=== PATIENT | female | born 1980 | race Caucasian/White ===

== ENCOUNTER 2018-10-09 22:03 | Inpatient (IN) | payer BC, OTHER ==
[~2018-10-09] VITALS: Ht 154.9 cm; Wt 101.6 kg
[2018-10-09] MEDS ORDERED: ONDANSETRON PF 4 MG/2 ML VIAL. IV ONE (23:00)
[2018-10-09] MEDS ORDERED: IV NORMAL SALINE 1000ML BAG 1,000 ML IV ONE (23:00)
[2018-10-09] MEDS ORDERED: fentaNYL PF VIAL 100 MCG/2 ML VIAL IV ONE (23:15)
[2018-10-09 23:17] LABS: BASO % 0 % (0-3); EOS % 0 % (0-3); HEMATOCRIT 48.5 % (36.0-47.0); HEMOGLOBIN 16.3 g/dL (12.0-15.5); LYMPH # 1.4 x10^3/uL (1.0-4.8); LYMPH % 7 % (24-48); MEAN CORPUSCULAR HEMOGLOBIN 31 pg (25-35); MEAN CORPUSCULAR HGB CONC 34 g/dL (31-37); MEAN CORPUSCULAR VOLUME 93 fL (79-100); MONO # 1.7 x10^3/uL (0.0-1.1); MONO % 8 % (0-9); NEUT # 17.2 x10^3uL (1.8-7.7); NEUT % 85 % (31-73); PLATELET COUNT 434 x10^3/uL (140-400); RED BLOOD COUNT 5.23 x10^6/uL (3.50-5.40); RED CELL DISTRIBUTION WIDTH 14.3 % (11.5-14.5); WHITE BLOOD COUNT 20.3 x10^3/uL (4.0-11.0)
[2018-10-09 23:38] LABS: % BANDS 11 % (0-9); % LYMPHS 4 % (24-48); % MONOS 9 % (0-10); % SEGS 76 % (35-66); PLT ESTIMATE INCREASED (ADEQUATE)
[2018-10-10] VITALS (10 sets, daily range): BP systolic 94–127; BP diastolic 57–76
[2018-10-10 00:54] LABS: CALCIUM 9.4 mg/dL (8.5-10.1); CREATININE 0.9 mg/dL (0.6-1.0); GFR 70.8; POTASSIUM 3.8 mmol/L (3.5-5.1)
[2018-10-10 01:00] LABS: ALBUMIN 4.2 g/dL (3.4-5.0); ALBUMIN/GLOBULIN RATIO 1.1 (1.0-1.7); TOTAL BILIRUBIN 0.7 mg/dL (0.2-1.0); TOTAL PROTEIN 8.1 g/dL (6.4-8.2)
[2018-10-10] MEDS ORDERED: IOHEXOL 300 MG/ML 100ML VIAL. IV ONE (01:30)
[2018-10-10] MEDS ORDERED: CONTRAST GIVEN. MC PRN (01:45)
--- NOTE | 2018-10-10 02:09 | PHYS DOC ---
Past Medical History Past Medical History: Hypothyroid Past Surgical History: No Surgical History Alcohol Use: Rarely Drug Use: None Adult General Chief Complaint Chief Complaint: ABDOMINAL PAIN HPI HPI 38-year-old female presents with a 24-hour history of abdominal pain. She states she has had a lump around her umbilicus however it seems more pronounced and more painful today. She has had some nausea and vomiting. She denies any fever chills or sweats. She denies any melena or hematemesis. She states the pain is severe.[] Review of Systems Review of Systems Constitutional: Denies fever or chills [] Eyes: Denies change in visual acuity, redness, or eye pain [] HENT: Denies nasal congestion or sore throat [] Respiratory: Denies cough or shortness of breath [] Cardiovascular: No additional information not addressed in HPI [] GI: Denies abdominal pain, nausea, vomiting, bloody stools or diarrhea [] : Denies dysuria or hematuria [] Musculoskeletal: Denies back pain or joint pain [] Integument: Denies rash or skin lesions [] Neurologic: Denies headache, focal weakness or sensory changes [] Endocrine: Denies polyuria or polydipsia [] All other systems were reviewed and found to be within normal limits, except as documented in this note. Current Medications Current Medications Current Medications Medications (Trade) Dose Ordered Sig/Kemal Start Time Stop Time Status Last Admin Dose Admin Fentanyl Citrate (Fentanyl 2ml Vial) 50 mcg 1X ONCE 10/09/18 23:15 10/09/18 23:16 DC 10/09/18 23:28 50 MCG Info (CONTRAST GIVEN -- Rx MONITORING) 1 each PRN DAILY PRN 10/10/18 01:45 10/12/18 01:44 Iohexol (Omnipaque 300 Mg/ml) 75 ml 1X ONCE 10/10/18 01:30 10/10/18 01:49 DC 10/10/18 01:31 75 ML Ondansetron HCl (Zofran) 4 mg 1X ONCE 10/10/18 02:15 10/10/18 02:16 DC 10/10/18 02:15 4 MG Sodium Chloride 1,000 ml @ 1,000 mls/hr 1X ONCE 10/09/18 23:00 10/09/18 23:59 DC 10/09/18 23:07 1,000 MLS/HR Allergies Allergies Allergies Coded Allergies Type Severity Reaction Last Updated Verified Penicillins Allergy Intermediate 02/06/16 No Physical Exam Physical Exam Constitutional: Well developed, well nourished, moderate distress, non-toxic appearance. [] HENT: Normocephalic, atraumatic, bilateral external ears normal, oropharynx moist, no oral exudates, nose normal. [] Eyes: PERRLA, EOMI, conjunctiva normal, no discharge. [] Neck: Normal range of motion, no tenderness, supple, no stridor. [] Cardiovascular:Heart rate regular rhythm, no murmur [] Lungs & Thorax: Bilateral breath sounds clear to auscultation [] Abdomen: Soft and generally tender to palp there is a very painful periumbilical ventral hernia[] Skin: Warm, dry, no erythema, no rash. [] Back: No tenderness, no CVA tenderness. [] Extremities: No tenderness, no cyanosis, no clubbing, ROM intact, no edema. [] Neurologic: Alert and oriented X 3, normal motor function, normal sensory function, no focal deficits noted. [] Psychologic: Anxious[] Current Patient Data Vital Signs Vital Signs Date Time Temp Pulse Resp B/P (MAP) Pulse Ox O2 Delivery O2 Flow Rate FiO2 10/10/18 02:19 144/101 (115) 10/09/18 23:28 18 98 Room Air 10/09/18 23:05 99.2 118 99.2 Lab Values Laboratory Tests Test 10/09/18 23:05 10/10/18 00:01 White Blood Count 20.3 x10^3/uL (4.0-11.0) H Red Blood Count 5.23 x10^6/uL (3.50-5.40) Hemoglobin 16.3 g/dL (12.0-15.5) H Hematocrit 48.5 % (36.0-47.0) H Mean Corpuscular Volume 93 fL (79-100) Mean Corpuscular Hemoglobin 31 pg (25-35) Mean Corpuscular Hemoglobin Concent 34 g/dL (31-37) Red Cell Distribution Width 14.3 % (11.5-14.5) Platelet Count 434 x10^3/uL (140-400) H Neutrophils (%) (Auto) 85 % (31-73) H Lymphocytes (%) (Auto) 7 % (24-48) L Monocytes (%) (Auto) 8 % (0-9) Eosinophils (%) (Auto) 0 % (0-3) Basophils (%) (Auto) 0 % (0-3) Neutrophils # (Auto) 17.2 x10^3uL (1.8-7.7) H Lymphocytes # (Auto) 1.4 x10^3/uL (1.0-4.8) Monocytes # (Auto) 1.7 x10^3/uL (0.0-1.1) H Eosinophils # (Auto) 0.0 x10^3/uL (0.0-0.7) Basophils # (Auto) 0.0 x10^3/uL (0.0-0.2) Segmented Neutrophils % 76 % (35-66) H Band Neutrophils % 11 % (0-9) H Lymphocytes % 4 % (24-48) L Monocytes % 9 % (0-10) Platelet Estimate Increased (ADEQUATE) Lipase 98 U/L (73-393) Sodium Level 140 mmol/L (136-145) Potassium Level 3.8 mmol/L (3.5-5.1) Chloride Level 100 mmol/L (98-107) Carbon Dioxide Level 28 mmol/L (21-32) Anion Gap 12 (6-14) Blood Urea Nitrogen 19 mg/dL (7-20) Creatinine 0.9 mg/dL (0.6-1.0) Estimated GFR (Cockcroft-Gault) 70.8 BUN/Creatinine Ratio 21 (6-20) H Glucose Level 113 mg/dL (70-99) H Calcium Level 9.4 mg/dL (8.5-10.1) Total Bilirubin 0.7 mg/dL (0.2-1.0) Aspartate Amino Transferase (AST) 18 U/L (15-37) Alanine Aminotransferase (ALT) 23 U/L (14-59) Alkaline Phosphatase 76 U/L (46-116) Total Protein 8.1 g/dL (6.4-8.2) Albumin 4.2 g/dL (3.4-5.0) Albumin/Globulin Ratio 1.1 (1.0-1.7) Laboratory Tests 10/09/18 23:05 Laboratory Tests 10/10/18 00:01 EKG EKG [] Radiology/Procedures Radiology/Procedures [] Impressions: STATUS: REG ERORD. PHYSICIAN: ALMA ANGELA DO REASON: abd pain - ventral hernia PROCEDURE: CT ABD PELV W/ IV CONTRST ONLY EXAM: CT Abdomen and Pelvis with IV contrast CLINICAL HISTORY: Abdominal pain, ventral abdominal hernia. COMPARISON: none TECHNIQUE: Helical CT of the abdomen and pelvis was performed following the administration of intravenous contrast. Axial, coronal and sagittal reformatted images were generated. PQRS compliance statement - One or more of the following individualized dose reduction techniques were utilized for this study: 1. Automated exposure control 2. Adjustment of the mA and/or kV according to patient size 3. Use of iterative reconstruction technique FINDINGS: Lower chest: Lung bases are clear. Small hiatal hernia. Abdomen and Pelvis: No focal liver lesion. Calcified gallstones are seen within the gallbladder. Spleen is unremarkable. Adrenal glands are normal. Pancreas is unremarkable. Symmetric nephrograms. Hypodense left interpolar renal lesion too small to accurately characterize. No hydronephrosis or hydroureter. There is dilation of the small bowel to the level of a ventral abdominal hernia with distal decompression consistent with small bowel obstruction. Small volume free pelvic fluid. No evidence for free intraperitoneal gas. Fluid is seen tracking up along the cecum. Appendix is normal. Small volume abdominal and pelvic ascites. No loculated fluid collection is seen within the abdomen or pelvis. Bladder is unremarkable. No abdominal or pelvic lymphadenopathy. Bones: Osseous structures are unremarkable. IMPRESSION: 1. Small bowel obstruction to the level of the ventral abdominal hernia beyond which the small bowel is decompressed. 2. Mild abdominal and pelvic ascites. No pneumoperitoneum. 3. Cholelithiasis without CT evidence for acute cholecystitis. Course & Med Decision Making Course & Med Decision Making Pertinent Labs and Imaging studies reviewed. (See chart for details) [ED course: Evaluation reveals a 38-year-old female with what appears to be an incarcerated ventral hernia causing a small bowel obstruction. Patient was given a total of 2 L of IV fluid fentanyl and Zofran which did help improve the symptoms. I was unable to reduce the hernia. I will speak with our general surgeon as soon as I saw the results of the CT scan and got the patient admitted overnight.] Dragon Disclaimer Dragon Disclaimer This electronic medical record was generated, in whole or in part, using a voice recognition dictation system. Departure Departure Impression: Primary Impression: Small bowel obstruction Additional Impression: Incarcerated ventral hernia Disposition: 09 ADMITTED INPATIENT Admitting Physician: Other (Dr. Baltazar) Condition: GUARDED Referrals: CHENCHO ESCAMILLA DO (PCP) Problem Qualifiers ALMA ANGELA DO Oct 10, 2018 02:08
[2018-10-10] MEDS ORDERED: ONDANSETRON PF 4 MG/2 ML VIAL. IV ONE (02:15)
--- NOTE | 2018-10-10 02:19 | RAD ---
EXAM: CT Abdomen and Pelvis with IV contrast CLINICAL HISTORY: Abdominal pain, ventral abdominal hernia. COMPARISON: none TECHNIQUE: Helical CT of the abdomen and pelvis was performed following the administration of intravenous contrast. Axial, coronal and sagittal reformatted images were generated. PQRS compliance statement - One or more of the following individualized dose reduction techniques were utilized for this study: 1. Automated exposure control 2. Adjustment of the mA and/or kV according to patient size 3. Use of iterative reconstruction technique FINDINGS: Lower chest: Lung bases are clear. Small hiatal hernia. Abdomen and Pelvis: No focal liver lesion. Calcified gallstones are seen within the gallbladder. Spleen is unremarkable. Adrenal glands are normal. Pancreas is unremarkable. Symmetric nephrograms. Hypodense left interpolar renal lesion too small to accurately characterize. No hydronephrosis or hydroureter. There is dilation of the small bowel to the level of a ventral abdominal hernia with distal decompression consistent with small bowel obstruction. Small volume free pelvic fluid. No evidence for free intraperitoneal gas. Fluid is seen tracking up along the cecum. Appendix is normal. Small volume abdominal and pelvic ascites. No loculated fluid collection is seen within the abdomen or pelvis. Bladder is unremarkable. No abdominal or pelvic lymphadenopathy. Bones: Osseous structures are unremarkable. IMPRESSION: 1. Small bowel obstruction to the level of the ventral abdominal hernia beyond which the small bowel is decompressed. 2. Mild abdominal and pelvic ascites. No pneumoperitoneum. 3. Cholelithiasis without CT evidence for acute cholecystitis. Electronically signed by: Mj Torrez MD (10/10/2018 2:16 AM) [id number]
[2018-10-10] MEDS ORDERED: fentaNYL PF VIAL 100 MCG/2 ML VIAL IV PRN ×2 (02:30→05:15)
[2018-10-10] MEDS ORDERED: ONDANSETRON PF 4 MG/2 ML VIAL. IV PRN ×3 (02:30→06:30)
[2018-10-10] MEDS ORDERED: IV NORMAL SALINE 1000ML BAG 1,000 ML IV SCH (02:30)
[2018-10-10] MEDS ORDERED: BUPIVAC MPF-EPI 0.5%-1:200000 30 ML VIAL. ONE (03:13)
--- NOTE | 2018-10-10 03:38 | PDOC1 ---
History and Physical Date of Admission Date of Admission DATE: 10/10/18 TIME: 03:30 Identification/Chief Complaint Chief Complaint abdominal pain Source Source: Chart review, Patient History of Present Illness History of Present Illness Yen is a 38 yo obese female with increasing pain around a palpable fullness in her periumbilical area. CT shows SBO 2/2 incarcerated ventral hernia Past Medical History Cardiovascular: No pertinent hx Pulmonary: No pertinent hx Renal/: No pertinent hx Past Surgical History Past Surgical History: No pertinent history Family History Family History: No Significant Social History Smoke: <1 pack per day Drugs: None Current Problem List Problem List Problems Medical Problems: (1) Incarcerated ventral hernia Status: Acute (2) Small bowel obstruction Status: Acute Current Medications Current Medications Current Medications Sodium Chloride 1,000 ml @ 1,000 mls/hr 1X ONCE IV Last administered on at 23:07; Start 10/09/18 at 23:00; Stop 10/09/18 at 23:59; Status DC Ondansetron HCl (Zofran) 8 mg 1X ONCE IV Last administered on 10/09/18at 23:28; Start 10/09/18 at 23:00; Stop 10/09/18 at 23:01; Status DC Fentanyl Citrate (Fentanyl 2ml Vial) 50 mcg 1X ONCE IV Last administered on 10/09/18at 23:28; Start 10/09/18 at 23:15; Stop 10/09/18 at 23:16; Status DC Iohexol (Omnipaque 300 Mg/ml) 75 ml 1X ONCE IV Last administered on 10/10/18at 01:31; Start 10/10/18 at 01:30; Stop 10/10/18 at 01:49; Status DC Info (CONTRAST GIVEN -- Rx MONITORING) 1 each PRN DAILY PRN MC SEE COMMENTS; Start 10/10/18 at 01:45; Stop 10/12/18 at 01:44 Ondansetron HCl (Zofran) 4 mg 1X ONCE IV Last administered on 10/10/18at 02:15 ; Start 10/10/18 at 02:15; Stop 10/10/18 at 02:16; Status DC Ondansetron HCl (Zofran) 4 mg PRN Q8HRS PRN IV NAUSEA/VOMITING; Start 10/10/18 at 02:30; Stop 10/11/18 at 02:29 Fentanyl Citrate (Fentanyl 2ml Vial) 50 mcg PRN Q1HR PRN IV PAIN; Start at 02:30; Stop 10/11/18 at 02:29 Sodium Chloride 1,000 ml @ 125 mls/hr Q8H IV ; Start 10/10/18 at 02:30; Stop at 02:29 Benzocaine (Hurricaine One) 1 spray 1X ONCE MM ; Start 10/10/18 at 03:15; Stop 10/10/18 at 03:16; Status UNV Allergies Allergies: Coded Allergies: Penicillins (Unverified Allergy, Intermediate, 02/06/16) ROS Gastrointestinal: Yes Nausea, Yes Vomiting, Yes Abdominal Pain Physical Exam General: Alert, Oriented X3, Other (uncomfortable 2/2 abdominal pain) HEENT: PERRLA Lungs: Normal air movement Heart: RRR Abdomen: Soft, Other (tender palpable mass in the periumbilical area) Rectal Exam: not examined Extremities: No clubbing, No cyanosis Skin: Other (warm, dry) Neuro: Normal speech Psych/Mental Status: Mental status NL Vitals Vitals Vital Signs Date Time Temp Pulse Resp B/P (MAP) Pulse Ox O2 Delivery O2 Flow Rate FiO2 10/10/18 02:19 144/101 (115) 10/09/18 23:28 18 98 Room Air 10/09/18 23:05 99.2 118 99.2 Labs Labs Laboratory Tests Test 10/09/18 23:05 10/10/18 00:01 White Blood Count 20.3 x10^3/uL (4.0-11.0) Red Blood Count 5.23 x10^6/uL (3.50-5.40) Hemoglobin 16.3 g/dL (12.0-15.5) Hematocrit 48.5 % (36.0-47.0) Mean Corpuscular Volume 93 fL (79-100) Mean Corpuscular Hemoglobin 31 pg (25-35) Mean Corpuscular Hemoglobin Concent 34 g/dL (31-37) Red Cell Distribution Width 14.3 % (11.5-14.5) Platelet Count 434 x10^3/uL (140-400) Neutrophils (%) (Auto) 85 % (31-73) Lymphocytes (%) (Auto) 7 % (24-48) Monocytes (%) (Auto) 8 % (0-9) Eosinophils (%) (Auto) 0 % (0-3) Basophils (%) (Auto) 0 % (0-3) Neutrophils # (Auto) 17.2 x10^3uL (1.8-7.7) Lymphocytes # (Auto) 1.4 x10^3/uL (1.0-4.8) Monocytes # (Auto) 1.7 x10^3/uL (0.0-1.1) Eosinophils # (Auto) 0.0 x10^3/uL (0.0-0.7) Basophils # (Auto) 0.0 x10^3/uL (0.0-0.2) Segmented Neutrophils % 76 % (35-66) Band Neutrophils % 11 % (0-9) Lymphocytes % 4 % (24-48) Monocytes % 9 % (0-10) Platelet Estimate Increased (ADEQUATE) Lipase 98 U/L (73-393) Sodium Level 140 mmol/L (136-145) Potassium Level 3.8 mmol/L (3.5-5.1) Chloride Level 100 mmol/L (98-107) Carbon Dioxide Level 28 mmol/L (21-32) Anion Gap 12 (6-14) Blood Urea Nitrogen 19 mg/dL (7-20) Creatinine 0.9 mg/dL (0.6-1.0) Estimated GFR (Cockcroft-Gault) 70.8 BUN/Creatinine Ratio 21 (6-20) Glucose Level 113 mg/dL (70-99) Calcium Level 9.4 mg/dL (8.5-10.1) Total Bilirubin 0.7 mg/dL (0.2-1.0) Aspartate Amino Transf (AST/SGOT) 18 U/L (15-37) Alanine Aminotransferase (ALT/SGPT) 23 U/L (14-59) Alkaline Phosphatase 76 U/L (46-116) Total Protein 8.1 g/dL (6.4-8.2) Albumin 4.2 g/dL (3.4-5.0) Albumin/Globulin Ratio 1.1 (1.0-1.7) Laboratory Tests Test 10/09/18 23:05 10/10/18 00:01 White Blood Count 20.3 x10^3/uL (4.0-11.0) Red Blood Count 5.23 x10^6/uL (3.50-5.40) Hemoglobin 16.3 g/dL (12.0-15.5) Hematocrit 48.5 % (36.0-47.0) Mean Corpuscular Volume 93 fL (79-100) Mean Corpuscular Hemoglobin 31 pg (25-35) Mean Corpuscular Hemoglobin Concent 34 g/dL (31-37) Red Cell Distribution Width 14.3 % (11.5-14.5) Platelet Count 434 x10^3/uL (140-400) Neutrophils (%) (Auto) 85 % (31-73) Lymphocytes (%) (Auto) 7 % (24-48) Monocytes (%) (Auto) 8 % (0-9) Eosinophils (%) (Auto) 0 % (0-3) Basophils (%) (Auto) 0 % (0-3) Neutrophils # (Auto) 17.2 x10^3uL (1.8-7.7) Lymphocytes # (Auto) 1.4 x10^3/uL (1.0-4.8) Monocytes # (Auto) 1.7 x10^3/uL (0.0-1.1) Eosinophils # (Auto) 0.0 x10^3/uL (0.0-0.7) Basophils # (Auto) 0.0 x10^3/uL (0.0-0.2) Segmented Neutrophils % 76 % (35-66) Band Neutrophils % 11 % (0-9) Lymphocytes % 4 % (24-48) Monocytes % 9 % (0-10) Platelet Estimate Increased (ADEQUATE) Lipase 98 U/L (73-393) Sodium Level 140 mmol/L (136-145) Potassium Level 3.8 mmol/L (3.5-5.1) Chloride Level 100 mmol/L (98-107) Carbon Dioxide Level 28 mmol/L (21-32) Anion Gap 12 (6-14) Blood Urea Nitrogen 19 mg/dL (7-20) Creatinine 0.9 mg/dL (0.6-1.0) Estimated GFR (Cockcroft-Gault) 70.8 BUN/Creatinine Ratio 21 (6-20) Glucose Level 113 mg/dL (70-99) Calcium Level 9.4 mg/dL (8.5-10.1) Total Bilirubin 0.7 mg/dL (0.2-1.0) Aspartate Amino Transf (AST/SGOT) 18 U/L (15-37) Alanine Aminotransferase (ALT/SGPT) 23 U/L (14-59) Alkaline Phosphatase 76 U/L (46-116) Total Protein 8.1 g/dL (6.4-8.2) Albumin 4.2 g/dL (3.4-5.0) Albumin/Globulin Ratio 1.1 (1.0-1.7) Images Images CT abd/pelvis reviewed VTE Prophylaxis Ordered VTE Prophylaxis Devices: Yes VTE Pharmacological Prophylaxi: No Assessment/Plan Assessment/Plan small bowel obstruction 2/2 incarcerated ventral hernia obesity to OR for repair incarcerated hernia, release SBO, possible bowel resection explained risks of the procedure to pt and her daughter including but not limited to bleeding, infection, anastomotic leak, recurrence she will proceed MEREDITH WILKINSON MD Oct 10, 2018 03:38
[2018-10-10] MEDS ORDERED: BENZOCAINE ONE 20% MUCOSAL SPRAY. MM (03:45)
[2018-10-10] MEDS ORDERED: fentaNYL PF VIAL 250 MCG/5 ML VIAL ONE (04:03)
[2018-10-10] MEDS ORDERED: ROCURONIUM 50 MG/5 ML VIAL. ONE (04:04)
[2018-10-10] MEDS ORDERED: SUCCINYLCHOLINE 200 MG/10 ML VIAL. ONE (04:04)
[2018-10-10] MEDS ORDERED: LIDOCAINE 2% PF 5 ML VIAL. ONE (04:06)
[2018-10-10] MEDS ORDERED: PROPOFOL 20 ML IV ONE (04:06)
[2018-10-10] MEDS ORDERED: ISOFLURANE 61 TO 120 MINUTES. IH ONE (04:06)
[2018-10-10] MEDS ORDERED: ONDANSETRON PF 4 MG/2 ML VIAL. ONE (04:06)
[2018-10-10] MEDS ORDERED: DEXAMETHASONE SOD PHOS 20 MG/5 ML VIAL. ONE (04:06)
[2018-10-10] MEDS ORDERED: FAMOTIDINE 20 MG/2 ML VIAL ONE (04:13)
[2018-10-10] MEDS ORDERED: IV RINGERS,LACTATED 1000ML 1,000 ML IV SCH ×2 (04:15→05:15)
[2018-10-10] MEDS ORDERED: METOPROLOL TARTRATE 5 MG/5 ML VIAL. IVP ONE (04:28)
[2018-10-10] MEDS ORDERED: LIDOCAINE 1% PF 2 ML VIAL. ID PRN (05:15)
[2018-10-10] MEDS ORDERED: GLYCOPYRROLATE 1 MG/5 ML VIAL. ONE (05:28)
[2018-10-10] MEDS ORDERED: NEOSTIGMINE METHYLSULFATE 5 MG/5 ML SYRINGE. ONE (05:29)
[2018-10-10] MEDS ORDERED: PHENOL ORAL SPRAY 177ML BOTTLE. PO PRN ×2 (06:30→23:00)
[2018-10-10] MEDS ORDERED: BENZOCAINE/MENTHOL LOZENGE. PO PRN (06:30)
[2018-10-10] MEDS: POTASSIUM CL 20MEQ-0.45% NACL 1,000 ML IV SCH ×3 (06:30→16:30)
[2018-10-10] MEDS ORDERED: 0.9 % SODIUM CHLORIDE 10 ML DISP.SYRIN. IV PRN (06:30)
--- NOTE | 2018-10-10 06:38 | PDOC ---
BRIEF OPERATIVE NOTE Date: Oct 10, 2018 Pre-Op Diagnosis SBO 2/2 incarcerated umbilical hernia Post-Op Diagnosis same with ischemic small bowel Procedure Performed primary repair of incarcerated umbilical hernia small bowel resection release small bowel obstruction Surgeon Giovanny Seed Tester Loyda VIVEROS Anesthesia Type: General Blood Loss 25cc IV Fluid 1500cc Urine Output 250cc Specimens Obtained small bowel Findings incarcerated ischemic small bowel in umbilical hernia Complications none Operative Note Wk # [id number] MEREDITH WILKINSON MD Oct 10, 2018 06:38
[2018-10-10] MEDS: PROCHLORPERAZINE 10 MG/2 ML VIAL. IV PRN ×2 (06:50→07:49)
[2018-10-10] MEDS: MORPHINE SULFATE 2 MG/ML VIAL. IV PRN ×2 (06:51→07:22)
[2018-10-10] MEDS: fentaNYL PF VIAL 100 MCG/2 ML VIAL IV PRN ×2 (07:22→07:35)
[2018-10-10] MEDS: HYDROmorphone 12mg/30ml PCA 30 ML IV PRN (07:28)
--- NOTE | 2018-10-10 07:31 | OP ---
DATE OF SURGERY: 10/10/2018 PREOPERATIVE DIAGNOSIS: Small-bowel obstruction secondary to incarcerated umbilical hernia. POSTOPERATIVE DIAGNOSIS: Small-bowel obstruction secondary to incarcerated umbilical hernia with ischemic small bowel. PROCEDURE: Primary repair of incarcerated umbilical hernia after release of small-bowel obstruction and small bowel resection with end-to-end anastomosis. SURGEON: Tevin Wilkinson MD RISK ENGINEER: JACKELINE Anderson. ANESTHESIA: General endotracheal. ESTIMATED BLOOD LOSS: 25 mL. INTRAVENOUS FLUIDS: 1500. URINE OUTPUT: 250 mL. INDICATIONS: The patient is a 38-year-old with pain and fullness just inferior and to the right of the umbilicus. This was found to be the result of incarcerated and compromised small bowel in an umbilical hernia. DESCRIPTION OF PROCEDURE: The patient was brought to the operating suite, given a general endotracheal anesthetic, Hager catheter placed to dependent drainage and the abdomen prepped and draped in the usual sterile fashion. The umbilicus was excised and the incision extended inferiorly over the palpable process. Dissection carried down to the anterior sheath. The hernia sac was carefully opened and evidence of some ischemic bowel was seen. The fascia was opened in the midline above and below the hernia to allow delivery of the small bowel out of the abdomen. The compromised segment of bowel was resected by transecting it proximally and distally with [place] stapler. Small bowel mesentery divided and ligated with Vicryl ties. End-to-end anastomosis using 3-0 Vicryl interrupted sutures posteriorly. Bowel occluded with atraumatic clamps. Staple lines excised. Mucosal anastomosis created with a running locked 3-0 chromic first posteriorly and then anteriorly. Clamps removed. Anastomosis completed with an anterior row of 3-0 Vicryl. There was competency and patency of the anastomosis at completion. The mesenteric rent was approximated with 2-0 chromic taking care to avoid compromise of blood supply to the anastomosis. Gloves were changed. Cultures were taken of the abdominal fluid. Abdomen then irrigated, evacuated and checked for hemostasis. When present and a correct sponge count was obtained, the midline incision was closed in running fashion using looped #1 PDS tied in the middle. Subq irrigated and checked for hemostasis, approximated with 3-0 Vicryl and skin closed with subcuticular 4-0 Monocryl. Sterile dressing applied. Abdominal binder placed. Postop foreign body film was negative for unexplained foreign body. The patient was awakened from her anesthetic and taken to the recovery room in satisfactory condition. TEVIN WILKINSON MD DR: LEYDI/kevon JOB#: [id number] / [id number]
[2018-10-10] MEDS: HYDROmorphone 2 MG/ML VIAL IV PRN ×2 (07:48→07:59)
[2018-10-10] MEDS ORDERED: hydrALAZINE 20 MG/ML VIAL. ONE (08:01)
[2018-10-10] MEDS ORDERED: hydrALAZINE 20 MG/ML VIAL. IVP ONE (08:02)
--- NOTE | 2018-10-10 08:11 | RAD ---
Single view of the abdomen 10/10/2018 INDICATION: Postoperative COMPARISON STUDY: CT of the abdomen and pelvis October 10, 2018 FINDINGS: There is a focal mildly dilated loop of small bowel noted in the left upper quadrant. The appearance is nonspecific. No gross evidence of obstruction is seen. Contrast is noted within the renal collecting system and bladder. Hager catheter in place. Bony thorax is intact. No radiopaque foreign bodies are identified IMPRESSION: 1. Mildly dilated loop of small bowel in the left upper abdomen is nonspecific. A focal ileus is not excluded. Consider radiographic follow-up. 2. No other acute intra-abdominal abnormality is seen Electronically signed by: Robin Murdock MD (10/10/2018 8:09 AM) [id number]
[2018-10-10] MEDS ORDERED: ENOXAPARIN 40 MG/0.4 ML SYRINGE. SQ SCH (09:00)
--- NOTE | 2018-10-10 10:12 | NUR ---
SW following for discharge planning. Discussed with RN, pt is from home with children. Pt had surgery this morning, RN advised no SW needs at this time. SW will continue to follow.
--- NOTE | 2018-10-10 10:14 | PDOC1 ---
History and Physical Date of Admission Date of Admission DATE: 10/10/18 TIME: 10:13 Identification/Chief Complaint Chief Complaint SEEN IN ER, Presents with a 24-hour history of abdominal pain. She states she has had a lump around her umbilicus however it seems more pronounced and more painful on 10/09. She has had some nausea and vomiting in ER TAKEN TO OR EMERGENTLY LAST PM no prev hx major surgery STILL A SMOKER History of Present Illness History of Present Illness SEX: F STATUS: ADM IN LOCATION: [address] [place] [address] DATE OF SURGERY: 10/10/2018 PREOPERATIVE DIAGNOSIS: Small-bowel obstruction secondary to incarcerated umbilical hernia. POSTOPERATIVE DIAGNOSIS: Small-bowel obstruction secondary to incarcerated umbilical hernia with ischemic small bowel. PROCEDURE: Primary repair of incarcerated umbilical hernia after release of small-bowel obstruction and small bowel resection with end-to-end anastomosis. SURGEON: Tevin Baltazar MD PLANT TENDER: JACKELINE Anderson. ANESTHESIA: General endotracheal. ESTIMATED BLOOD LOSS: 25 mL. INTRAVENOUS FLUIDS: 1500. URINE OUTPUT: 250 mL. INDICATIONS: The patient is a 38-year-old with pain and fullness just inferior and to the right of the umbilicus. This was found to be the result of incarcerated and compromised small bowel in an umbilical hernia. Past Medical History Past Medical History Past Medical History Past Medical History Past Medical History: Hypothyroid Past Surgical History: No Surgical History Alcohol Use: Rarely Drug Use: None FAMILY HX OBESITY Cardiovascular: No pertinent hx Pulmonary: No pertinent hx Hepatobiliary: No pertinent hx Infectious disease: No pertinent hx Renal/: No pertinent hx Past Surgical History Past Surgical History: No pertinent history Family History Family History: High Cholestrol Social History Smoke: <1 pack per day ALCOHOL: none Drugs: None Current Problem List Problem List Problems Medical Problems: (1) Incarcerated ventral hernia Status: Acute (2) Small bowel obstruction Status: Acute Current Medications Current Medications Current Medications Sodium Chloride 1,000 ml @ 1,000 mls/hr 1X ONCE IV Last administered on at 23:07; Start 10/09/18 at 23:00; Stop 10/09/18 at 23:59; Status DC Ondansetron HCl (Zofran) 8 mg 1X ONCE IV Last administered on 10/09/18at 23:28; Start 10/09/18 at 23:00; Stop 10/09/18 at 23:01; Status DC Fentanyl Citrate (Fentanyl 2ml Vial) 50 mcg 1X ONCE IV Last administered on 10/09/18at 23:28; Start 10/09/18 at 23:15; Stop 10/09/18 at 23:16; Status DC Iohexol (Omnipaque 300 Mg/ml) 75 ml 1X ONCE IV Last administered on 10/10/18at 01:31; Start 10/10/18 at 01:30; Stop 10/10/18 at 01:49; Status DC Info (CONTRAST GIVEN -- Rx MONITORING) 1 each PRN DAILY PRN MC SEE COMMENTS; Start 10/10/18 at 01:45; Stop 10/12/18 at 01:44 Ondansetron HCl (Zofran) 4 mg 1X ONCE IV Last administered on 10/10/18at 02:15 ; Start 10/10/18 at 02:15; Stop 10/10/18 at 02:16; Status DC Ondansetron HCl (Zofran) 4 mg PRN Q8HRS PRN IV NAUSEA/VOMITING; Start 10/10/18 at 02:30; Stop 10/11/18 at 02:29 Fentanyl Citrate (Fentanyl 2ml Vial) 50 mcg PRN Q1HR PRN IV PAIN; Start at 02:30; Stop 10/11/18 at 02:29 Sodium Chloride 1,000 ml @ 125 mls/hr Q8H IV ; Start 10/10/18 at 02:30; Stop at 09:47; Status DC Benzocaine (Hurricaine One) 1 spray 1X ONCE MM ; Start 10/10/18 at 03:45; Stop 10/10/18 at 03:46; Status DC Metronidazole 100 ml @ 100 mls/hr 1X ONCE IV Last administered on 10/10/18at 04:30; Start 10/10/18 at 03:45; Stop 10/10/18 at 04:44; Status DC Fentanyl Citrate (Fentanyl 5ml Vial) 250 mcg STK-MED ONCE .ROUTE ; Start at 04:03; Stop 10/10/18 at 04:04; Status DC Succinylcholine Chloride (Anectine) 200 mg STK-MED ONCE .ROUTE ; Start 10/10/18 at 04:04; Stop 10/10/18 at 04:05; Status DC Rocuronium [place] (Zemuron) 50 mg STK-MED ONCE .ROUTE ; Start 10/10/18 at 04:04 ; Stop 10/10/18 at 04:05; Status DC Isoflurane (Isoflurane) 60 ml STK-MED ONCE IH ; Start 10/10/18 at 04:06; Stop at 04:07; Status DC Dexamethasone Sodium Phosphate (Decadron) 20 mg STK-MED ONCE .ROUTE ; Start 04/20 at 04:06; Stop 10/10/18 at 04:07; Status DC Lidocaine HCl (Lidocaine Pf 2% Vial) 5 ml STK-MED ONCE .ROUTE ; Start 10/10/18 at 04:06; Stop 10/10/18 at 04:07; Status DC Ondansetron HCl (Zofran) 4 mg STK-MED ONCE .ROUTE ; Start 10/10/18 at 04:06; Stop 10/10/18 at 04:07; Status DC Propofol 20 ml @ As Directed STK-MED ONCE IV ; Start 10/10/18 at 04:06; Stop 04/20 at 04:07; Status DC Ringer's Solution 1,000 ml @ 100 mls/hr Q10H IV Last administered on at 06:52; Start 10/10/18 at 04:15; Stop 10/10/18 at 09:47; Status DC Famotidine (Pepcid Vial) 20 mg STK-MED ONCE .ROUTE ; Start 10/10/18 at 04:13; Stop 10/10/18 at 04:14; Status DC Bupivacaine HCl/ Epinephrine Bitart (Sensorcain-Mpf Epi 0.5%-[id number]) 30 ml STK -MED ONCE .ROUTE Last administered on 10/10/18at 04:57; Start 10/10/18 at 03:13 ; Stop 10/10/18 at 04:13; Status DC Metoprolol Tartrate (Lopressor Vial) 5 mg STK-MED ONCE IVP ; Start 10/10/18 at 04:28; Stop 10/10/18 at 04:29; Status DC Ondansetron HCl (Zofran) 4 mg PRN Q6HRS PRN IV NAUSEA/VOMITING; Start 10/10/18 at 05:15; Stop 10/11/18 at 05:14 Fentanyl Citrate (Fentanyl 2ml Vial) 25 mcg PRN Q5MIN PRN IV MILD PAIN; Start 10/10/18 at 05:15; Stop 10/11/18 at 05:14 Fentanyl Citrate (Fentanyl 2ml Vial) 50 mcg PRN Q5MIN PRN IV MODERATE TO SEVERE PAIN Last administered on 10/10/18at 07:35; Start 10/10/18 at 05:15; Stop 10/11/18 at 05:14 Morphine Sulfate (Morphine Sulfate) 1 mg PRN Q10MIN PRN IV SEVERE PAIN Last administered on 10/10/18at 07:22; Start 10/10/18 at 05:15; Stop 10/11/18 at 05:14 Ringer's Solution 1,000 ml @ 30 mls/hr Q24H IV Last administered on 10/10/18at 05:15; Start 10/10/18 at 05:15; Stop 10/10/18 at 05:17; Status DC Lidocaine HCl (Xylocaine-Mpf 1% 2ml Vial) 2 ml PRN 1X PRN ID PRIOR TO IV START ; Start 10/10/18 at 05:15; Stop 10/11/18 at 05:14 Hydromorphone HCl (Dilaudid) 0.5 mg PRN Q10MIN PRN IV SEV PAIN, Second choice Last administered on 10/10/18at 07:59; Start 10/10/18 at 05:15; Stop 10/11/18 at 05:14 Prochlorperazine Edisylate (Compazine) 5 mg PACU PRN PRN IV NAUSEA, MRX1 Last administered on 10/10/18at 07:49; Start 10/10/18 at 05:15; Stop 10/11/18 at 05:14 Glycopyrrolate (Robinul) 1 mg STK-MED ONCE .ROUTE ; Start 10/10/18 at 05:28; Stop 10/10/18 at 05:29; Status DC Neostigmine Methylsulfate (Neostigmine Methylsulfate) 5 mg STK-MED ONCE .ROUTE ; Start 10/10/18 at 05:29; Stop 10/10/18 at 05:30; Status DC Enoxaparin Sodium (Lovenox 40mg Syringe) 40 mg Q24H SQ ; Start 10/10/18 at 09:00 ; Stop 10/10/18 at 09:45; Status DC Sodium Chloride (Normal Saline Flush) 3 ml QSHIFT PRN IV AFTER MEDS AND BLOOD DRAWS; Start 10/10/18 at 06:30 Potassium Chloride/Sodium Chloride 1,000 ml @ 100 mls/hr Q10H IV ; Start at 06:30 Hydromorphone HCl 30 ml @ 0 mls/hr CONT PRN PRN IV PER PROTOCOL Last administered on 10/10/18at 07:28; Start 10/10/18 at 06:30 Ondansetron HCl (Zofran) 4 mg PRN Q6HRS PRN IV NAUESA, 1ST CHOICE; Start at 06:30 Throat Lozenges (Chloraseptic) 1 spray PRN Q2HR PRN PO SORE THROAT; Start 10/10 at 06:30 Throat Lozenges (Cepacol Sore Throat Lozenge) 1 [place] PRN Q2HRS PRN PO SORE THROAT; Start 10/10/18 at 06:30 Hydralazine HCl (Apresoline Inj) 20 mg STK-MED ONCE .ROUTE ; Start 10/10/18 at 08:01; Stop 10/10/18 at 08:02; Status DC Hydralazine HCl (Apresoline Inj) 10 mg 1X ONCE IVP Last administered on at 08:05; Start 10/10/18 at 08:02; Stop 10/10/18 at 08:25; Status DC Hydralazine HCl (Apresoline Inj) 10 mg PRN Q4HRS PRN IVP ELEVATED BP, SEE COMMENTS; Start 10/10/18 at 08:15 Enoxaparin Sodium (Lovenox 40mg Syringe) 40 mg Q24H SQ ; Start 10/10/18 at 21:00 Allergies Allergies: Coded Allergies: Penicillins (Unverified Allergy, Intermediate, 10/10/18) ROS Review of System Review of Systems Review of Systems Constitutional: Denies fever or chills [] Eyes: Denies change in visual acuity, redness, or eye pain [] HENT: Denies nasal congestion or sore throat [] Respiratory: Denies cough or shortness of breath [] Cardiovascular: No additional information not addressed in HPI [] GI: Denies abdominal pain, nausea, vomiting, bloody stools or diarrhea [] : Denies dysuria or hematuria [] Musculoskeletal: Denies back pain or joint pain [] Integument: Denies rash or skin lesions [] Neurologic: Denies headache, focal weakness or sensory changes [] Endocrine: Denies polyuria or polydipsia [] 14 PT systems were reviewed and found to be within normal limits, except as documented General: No: Chills, Night Sweats, Fatigue, Malaise, Appetite, Other Hematological and Lymphatic: No: Bleeding Problems, Blood Clots, Blood Transfusions, Brusing, Night Sweats, Pallor, Swollen Lymph Nodes, Other ENDOCRINE: No: Breast Changes, Galactorrhea, Hair Pattern Changes, Hot Flashes , Malaise/lethargy, Mood Swings, Palpitations, Polydipsia/polyuria, Skin Changes , Temperature Intolerance, Unexpected Weight Changes, Other Cardiovascular: No Chest Pain, No Palpitations, No Orthopnea, No Paroxysmal Noc. Dyspnea, No Edema, No Lt Headedness, No Other Gastrointestinal: Yes Nausea, Yes Vomiting Musculoskeletal: No Gait Disturbance, No Joint Pain, No Joint Stiffness, No Joint Swelling, No Muscle Pain, No Muscular Weakness, No Pain In:, No Swelling In:, No Other Physical Exam Physical Exam Physical Exam Physical Exam Constitutional: Well developed, well nourished, moderate distress, non-toxic appearance. [] HENT: Normocephalic, atraumatic, bilateral external ears normal, oropharynx moist, no oral exudates, nose normal. [] Eyes: PERRLA, EOMI, conjunctiva normal, no discharge. [] Neck: Normal range of motion, no tenderness, supple, no stridor. [] Cardiovascular:Heart rate regular rhythm, no murmur [] Lungs & Thorax: Bilateral breath sounds clear to auscultation [] Abdomen: DRESSING DRY, INTACT[] Skin: Warm, dry, no erythema, no rash. [] Back: No tenderness, no CVA tenderness. [] Extremities: No tenderness, no cyanosis, no clubbing, ROM intact, no edema. [] Neurologic: Alert and oriented X 3, normal motor function, normal sensory function, no focal deficits noted. [] Psychologic: Anxious[] General: Alert, Oriented X3, Cooperative, moderate distress Breasts: Not examined Abdomen: Other (DRESSING DRY) Vitals Vitals Vital Signs Date Time Temp Pulse Resp B/P (MAP) Pulse Ox O2 Delivery O2 Flow Rate FiO2 10/10/18 08:30 Nasal Cannula 2.0 10/10/18 08:25 97.5 78 20 126/70 99 97.5 Labs Labs Laboratory Tests Test 10/09/18 23:05 10/10/18 00:01 White Blood Count 20.3 x10^3/uL (4.0-11.0) Red Blood Count 5.23 x10^6/uL (3.50-5.40) Hemoglobin 16.3 g/dL (12.0-15.5) Hematocrit 48.5 % (36.0-47.0) Mean Corpuscular Volume 93 fL (79-100) Mean Corpuscular Hemoglobin 31 pg (25-35) Mean Corpuscular Hemoglobin Concent 34 g/dL (31-37) Red Cell Distribution Width 14.3 % (11.5-14.5) Platelet Count 434 x10^3/uL (140-400) Neutrophils (%) (Auto) 85 % (31-73) Lymphocytes (%) (Auto) 7 % (24-48) Monocytes (%) (Auto) 8 % (0-9) Eosinophils (%) (Auto) 0 % (0-3) Basophils (%) (Auto) 0 % (0-3) Neutrophils # (Auto) 17.2 x10^3uL (1.8-7.7) Lymphocytes # (Auto) 1.4 x10^3/uL (1.0-4.8) Monocytes # (Auto) 1.7 x10^3/uL (0.0-1.1) Eosinophils # (Auto) 0.0 x10^3/uL (0.0-0.7) Basophils # (Auto) 0.0 x10^3/uL (0.0-0.2) Segmented Neutrophils % 76 % (35-66) Band Neutrophils % 11 % (0-9) Lymphocytes % 4 % (24-48) Monocytes % 9 % (0-10) Platelet Estimate Increased (ADEQUATE) Lipase 98 U/L (73-393) Sodium Level 140 mmol/L (136-145) Potassium Level 3.8 mmol/L (3.5-5.1) Chloride Level 100 mmol/L (98-107) Carbon Dioxide Level 28 mmol/L (21-32) Anion Gap 12 (6-14) Blood Urea Nitrogen 19 mg/dL (7-20) Creatinine 0.9 mg/dL (0.6-1.0) Estimated GFR (Cockcroft-Gault) 70.8 BUN/Creatinine Ratio 21 (6-20) Glucose Level 113 mg/dL (70-99) Calcium Level 9.4 mg/dL (8.5-10.1) Total Bilirubin 0.7 mg/dL (0.2-1.0) Aspartate Amino Transf (AST/SGOT) 18 U/L (15-37) Alanine Aminotransferase (ALT/SGPT) 23 U/L (14-59) Alkaline Phosphatase 76 U/L (46-116) Total Protein 8.1 g/dL (6.4-8.2) Albumin 4.2 g/dL (3.4-5.0) Albumin/Globulin Ratio 1.1 (1.0-1.7) Laboratory Tests Test 10/09/18 23:05 10/10/18 00:01 White Blood Count 20.3 x10^3/uL (4.0-11.0) Red Blood Count 5.23 x10^6/uL (3.50-5.40) Hemoglobin 16.3 g/dL (12.0-15.5) Hematocrit 48.5 % (36.0-47.0) Mean Corpuscular Volume 93 fL (79-100) Mean Corpuscular Hemoglobin 31 pg (25-35) Mean Corpuscular Hemoglobin Concent 34 g/dL (31-37) Red Cell Distribution Width 14.3 % (11.5-14.5) Platelet Count 434 x10^3/uL (140-400) Neutrophils (%) (Auto) 85 % (31-73) Lymphocytes (%) (Auto) 7 % (24-48) Monocytes (%) (Auto) 8 % (0-9) Eosinophils (%) (Auto) 0 % (0-3) Basophils (%) (Auto) 0 % (0-3) Neutrophils # (Auto) 17.2 x10^3uL (1.8-7.7) Lymphocytes # (Auto) 1.4 x10^3/uL (1.0-4.8) Monocytes # (Auto) 1.7 x10^3/uL (0.0-1.1) Eosinophils # (Auto) 0.0 x10^3/uL (0.0-0.7) Basophils # (Auto) 0.0 x10^3/uL (0.0-0.2) Segmented Neutrophils % 76 % (35-66) Band Neutrophils % 11 % (0-9) Lymphocytes % 4 % (24-48) Monocytes % 9 % (0-10) Platelet Estimate Increased (ADEQUATE) Lipase 98 U/L (73-393) Sodium Level 140 mmol/L (136-145) Potassium Level 3.8 mmol/L (3.5-5.1) Chloride Level 100 mmol/L (98-107) Carbon Dioxide Level 28 mmol/L (21-32) Anion Gap 12 (6-14) Blood Urea Nitrogen 19 mg/dL (7-20) Creatinine 0.9 mg/dL (0.6-1.0) Estimated GFR (Cockcroft-Gault) 70.8 BUN/Creatinine Ratio 21 (6-20) Glucose Level 113 mg/dL (70-99) Calcium Level 9.4 mg/dL (8.5-10.1) Total Bilirubin 0.7 mg/dL (0.2-1.0) Aspartate Amino Transf (AST/SGOT) 18 U/L (15-37) Alanine Aminotransferase (ALT/SGPT) 23 U/L (14-59) Alkaline Phosphatase 76 U/L (46-116) Total Protein 8.1 g/dL (6.4-8.2) Albumin 4.2 g/dL (3.4-5.0) Albumin/Globulin Ratio 1.1 (1.0-1.7) Images Images PROCEDURE: CT ABD PELV W/ IV CONTRST ONLY EXAM: CT Abdomen and Pelvis with IV contrast CLINICAL HISTORY: Abdominal pain, ventral abdominal hernia. COMPARISON: none TECHNIQUE: Helical CT of the abdomen and pelvis was performed following the administration of intravenous contrast. Axial, coronal and sagittal reformatted images were generated. PQRS compliance statement - One or more of the following individualized dose reduction techniques were utilized for this study: 1. Automated exposure control 2. Adjustment of the mA and/or kV according to patient size 3. Use of iterative reconstruction technique FINDINGS: Lower chest: Lung bases are clear. Small hiatal hernia. Abdomen and Pelvis: No focal liver lesion. Calcified gallstones are seen within the gallbladder. Spleen is unremarkable. Adrenal glands are normal. Pancreas is unremarkable. Symmetric nephrograms. Hypodense left interpolar renal lesion too small to accurately characterize. No hydronephrosis or hydroureter. There is dilation of the small bowel to the level of a ventral abdominal hernia with distal decompression consistent with small bowel obstruction. Small volume free pelvic fluid. No evidence for free intraperitoneal gas. Fluid is seen tracking up along the cecum. Appendix is normal. Small volume abdominal and pelvic ascites. No loculated fluid collection is seen within the abdomen or pelvis. Bladder is unremarkable. No abdominal or pelvic lymphadenopathy. Bones: Osseous structures are unremarkable. IMPRESSION: 1. Small bowel obstruction to the level of the ventral abdominal hernia beyond which the small bowel is decompressed. 2. Mild abdominal and pelvic ascites. No pneumoperitoneum. 3. Cholelithiasis without CT evidence for acute cholecystitis. Electronically signed by: Mj Chacon MD (10/10/2018 2:16 AM) [id number] DICTATED and SIGNED BY: MJ CHACON MD DATE: 10/10/18 0216 VTE Prophylaxis Ordered VTE Prophylaxis Devices: Yes VTE Pharmacological Prophylaxi: Yes Assessment/Plan Assessment/Plan impression Small-bowel obstruction secondary to incarcerated umbilical hernia with ischemic small bowel. Small bowel obstruction to the level of the ventral abdominal hernia beyond which the small bowel is decompressed. Mild abdominal and pelvic ascites. No pneumoperitoneum. Cholelithiasis without CT evidence for acute cholecystitis. morbid obesity HYPERTENSION, uncontrolled on admit, complicated by pain LEUKOCYTOSIS SEC to SIRS TOBACCO ABUSE SIRS Hypothyroid state on replacement plan Primary repair of incarcerated umbilical hernia after release of small-bowel obstruction and small bowel resection with end-to-end anastomosis. post-op pain control [facility]REQU[facility]S IV fluid support dvt prophylaxis bp control iv hydralazine 10mg q 4 hrs prn bp support NG AM CBC iv synthroid 58 min pt exam, chart review, > 50% of time spent with pt exam, chart review, pt care coordination KRISTY SCOTT MD Oct 10, 2018 10:14
[2018-10-10] MEDS: ENOXAPARIN 40 MG/0.4 ML SYRINGE. SQ SCH (21:37)
[2018-10-11] MEDS: POTASSIUM CL 20MEQ-0.45% NACL 1,000 ML IV SCH ×3 (00:08→21:04)
[2018-10-11 03:00] VITALS: BP 148/89
[2018-10-11 07:00] VITALS: BP 136/80
[2018-10-11 08:00] LABS: BASO % 0 % (0-3); EOS % 0 % (0-3); HEMATOCRIT 37.6 % (36.0-47.0); HEMOGLOBIN 12.7 g/dL (12.0-15.5); LYMPH # 1.7 x10^3/uL (1.0-4.8); LYMPH % 13 % (24-48); MEAN CORPUSCULAR HEMOGLOBIN 32 pg (25-35); MEAN CORPUSCULAR HGB CONC 34 g/dL (31-37); MEAN CORPUSCULAR VOLUME 94 fL (79-100); MONO # 1.4 x10^3/uL (0.0-1.1); MONO % 11 % (0-9); NEUT # 9.9 x10^3uL (1.8-7.7); NEUT % 76 % (31-73); PLATELET COUNT 331 x10^3/uL (140-400); RED BLOOD COUNT 4.01 x10^6/uL (3.50-5.40); RED CELL DISTRIBUTION WIDTH 14.4 % (11.5-14.5); WHITE BLOOD COUNT 13.1 x10^3/uL (4.0-11.0)
[2018-10-11 08:29] LABS: ALBUMIN 3.1 g/dL (3.4-5.0); CALCIUM 8.3 mg/dL (8.5-10.1); CREATININE 0.8 mg/dL (0.6-1.0); GFR 81.2; POTASSIUM 3.6 mmol/L (3.5-5.1); TOTAL BILIRUBIN 0.7 mg/dL (0.2-1.0); TOTAL PROTEIN 6.3 g/dL (6.4-8.2)
--- NOTE | 2018-10-11 09:18 | PDOC ---
[facility] [employer] 10/11/18 0918: SURGICAL PROGRESS NOTE Subjective throat sore, reflux no flatus sore Vital Signs Vital Signs Date Time Temp Pulse Resp B/P (MAP) Pulse Ox O2 Delivery O2 Flow Rate FiO2 10/11/18 07:00 98.2 73 18 136/80 (98) 94 Room Air 98.2 10/10/18 10:45 2.0 I&O Intake and Output 10/11/18 06:59 Intake Total 50 ml Output Total 1085 ml Balance -1035 ml Intake Oral 0 ml IV Total 50 ml Output Urine Total 985 ml Drainage Total 100 ml # Voids 1 PATIENT HAS A BELCHER: No General: Alert, Oriented X3, Cooperative HEENT: Other (NG bilious ) Abdomen: Soft, Other (dressing dry) Labs Laboratory Tests Test 10/09/18 23:05 10/10/18 00:01 10/11/18 06:57 White Blood Count 20.3 x10^3/uL (4.0-11.0) 13.1 x10^3/uL (4.0-11.0) Red Blood Count 5.23 x10^6/uL (3.50-5.40) 4.01 x10^6/uL (3.50-5.40) Hemoglobin 16.3 g/dL (12.0-15.5) 12.7 g/dL (12.0-15.5) Hematocrit 48.5 % (36.0-47.0) 37.6 % (36.0-47.0) Mean Corpuscular Volume 93 fL (79-100) 94 fL (79-100) Mean Corpuscular Hemoglobin 31 pg (25-35) 32 pg (25-35) Mean Corpuscular Hemoglobin Concent 34 g/dL (31-37) 34 g/dL (31-37) Red Cell Distribution Width 14.3 % (11.5-14.5) 14.4 % (11.5-14.5) Platelet Count 434 x10^3/uL (140-400) 331 x10^3/uL (140-400) Neutrophils (%) (Auto) 85 % (31-73) 76 % (31-73) Lymphocytes (%) (Auto) 7 % (24-48) 13 % (24-48) Monocytes (%) (Auto) 8 % (0-9) 11 % (0-9) Eosinophils (%) (Auto) 0 % (0-3) 0 % (0-3) Basophils (%) (Auto) 0 % (0-3) 0 % (0-3) Neutrophils # (Auto) 17.2 x10^3uL (1.8-7.7) 9.9 x10^3uL (1.8-7.7) Lymphocytes # (Auto) 1.4 x10^3/uL (1.0-4.8) 1.7 x10^3/uL (1.0-4.8) Monocytes # (Auto) 1.7 x10^3/uL (0.0-1.1) 1.4 x10^3/uL (0.0-1.1) Eosinophils # (Auto) 0.0 x10^3/uL (0.0-0.7) 0.0 x10^3/uL (0.0-0.7) Basophils # (Auto) 0.0 x10^3/uL (0.0-0.2) 0.0 x10^3/uL (0.0-0.2) Segmented Neutrophils % 76 % (35-66) Band Neutrophils % 11 % (0-9) Lymphocytes % 4 % (24-48) Monocytes % 9 % (0-10) Platelet Estimate Increased (ADEQUATE) Lipase 98 U/L (73-393) Sodium Level 140 mmol/L (136-145) 140 mmol/L (136-145) Potassium Level 3.8 mmol/L (3.5-5.1) 3.6 mmol/L (3.5-5.1) Chloride Level 100 mmol/L (98-107) 103 mmol/L (98-107) Carbon Dioxide Level 28 mmol/L (21-32) 29 mmol/L (21-32) Anion Gap 12 (6-14) 8 (6-14) Blood Urea Nitrogen 19 mg/dL (7-20) 16 mg/dL (7-20) Creatinine 0.9 mg/dL (0.6-1.0) 0.8 mg/dL (0.6-1.0) Estimated GFR (Cockcroft-Gault) 70.8 81.2 BUN/Creatinine Ratio 21 (6-20) 20 (6-20) Glucose Level 113 mg/dL (70-99) 87 mg/dL (70-99) Calcium Level 9.4 mg/dL (8.5-10.1) 8.3 mg/dL (8.5-10.1) Total Bilirubin 0.7 mg/dL (0.2-1.0) 0.7 mg/dL (0.2-1.0) Aspartate Amino Transf (AST/SGOT) 18 U/L (15-37) 15 U/L (15-37) Alanine Aminotransferase (ALT/SGPT) 23 U/L (14-59) 19 U/L (14-59) Alkaline Phosphatase 76 U/L (46-116) 57 U/L (46-116) Total Protein 8.1 g/dL (6.4-8.2) 6.3 g/dL (6.4-8.2) Albumin 4.2 g/dL (3.4-5.0) 3.1 g/dL (3.4-5.0) Albumin/Globulin Ratio 1.1 (1.0-1.7) 1.0 (1.0-1.7) Free Thyroxine 0.96 ng/dL (0.76-1.46) Laboratory Tests Test 10/11/18 06:57 White Blood Count 13.1 x10^3/uL (4.0-11.0) Red Blood Count 4.01 x10^6/uL (3.50-5.40) Hemoglobin 12.7 g/dL (12.0-15.5) Hematocrit 37.6 % (36.0-47.0) Mean Corpuscular Volume 94 fL (79-100) Mean Corpuscular Hemoglobin 32 pg (25-35) Mean Corpuscular Hemoglobin Concent 34 g/dL (31-37) Red Cell Distribution Width 14.4 % (11.5-14.5) Platelet Count 331 x10^3/uL (140-400) Neutrophils (%) (Auto) 76 % (31-73) Lymphocytes (%) (Auto) 13 % (24-48) Monocytes (%) (Auto) 11 % (0-9) Eosinophils (%) (Auto) 0 % (0-3) Basophils (%) (Auto) 0 % (0-3) Neutrophils # (Auto) 9.9 x10^3uL (1.8-7.7) Lymphocytes # (Auto) 1.7 x10^3/uL (1.0-4.8) Monocytes # (Auto) 1.4 x10^3/uL (0.0-1.1) Eosinophils # (Auto) 0.0 x10^3/uL (0.0-0.7) Basophils # (Auto) 0.0 x10^3/uL (0.0-0.2) Sodium Level 140 mmol/L (136-145) Potassium Level 3.6 mmol/L (3.5-5.1) Chloride Level 103 mmol/L (98-107) Carbon Dioxide Level 29 mmol/L (21-32) Anion Gap 8 (6-14) Blood Urea Nitrogen 16 mg/dL (7-20) Creatinine 0.8 mg/dL (0.6-1.0) Estimated GFR (Cockcroft-Gault) 81.2 BUN/Creatinine Ratio 20 (6-20) Glucose Level 87 mg/dL (70-99) Calcium Level 8.3 mg/dL (8.5-10.1) Total Bilirubin 0.7 mg/dL (0.2-1.0) Aspartate Amino Transf (AST/SGOT) 15 U/L (15-37) Alanine Aminotransferase (ALT/SGPT) 19 U/L (14-59) Alkaline Phosphatase 57 U/L (46-116) Total Protein 6.3 g/dL (6.4-8.2) Albumin 3.1 g/dL (3.4-5.0) Albumin/Globulin Ratio 1.0 (1.0-1.7) Problem List Problems Medical Problems: (1) Incarcerated ventral hernia Status: Acute (2) Small bowel obstruction Status: Acute Assessment/Plan POD#1 SBR, umbo hernia repair continue NG, bowel rest start light activity MEREDITH WILKINSON MD 10/11/18 1124: SURGICAL PROGRESS NOTE Assessment/Plan pt seen and examined will trial NG off suction [facility] [employer] [employer] Oct 11, 2018 09:18 MEREDITH WILKINSON MD Oct 11, 2018 11:24
[2018-10-11] MEDS ORDERED: PANTOPRAZOLE IV PUSH 40 MG VIAL. IVP ONE (09:30)
--- NOTE | 2018-10-11 10:58 | PDOC ---
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 TOOL NG tube also in-nothing by mouth Hager out, voiding fine She plans to ambulate later Plan: continue Dilaudid PROFILING MACHINE SET UP OPERATOR TOOL and nothing by mouth and NG tube Postop labs IVF while nothing by mouth PPI while nPO Vitals Vitals Vital Signs Date Time Temp Pulse Resp B/P (MAP) Pulse Ox O2 Delivery O2 Flow Rate FiO2 10/11/18 07:00 98.2 73 18 136/80 (98) 94 Room Air 98.2 10/10/18 10:45 2.0 Physical Exam General: Alert, Oriented X3, Cooperative, Other (N G-tube in place with drainage) Heart: Regular rate, Normal S1, Normal S2 Lungs: Clear Abdomen: Soft, Other (dressing dry) Extremities: No clubbing, No cyanosis Skin: Other (warm, dry) Labs LABS Laboratory Tests Test 10/11/18 06:57 White Blood Count 13.1 x10^3/uL (4.0-11.0) Red Blood Count 4.01 x10^6/uL (3.50-5.40) Hemoglobin 12.7 g/dL (12.0-15.5) Hematocrit 37.6 % (36.0-47.0) Mean Corpuscular Volume 94 fL (79-100) Mean Corpuscular Hemoglobin 32 pg (25-35) Mean Corpuscular Hemoglobin Concent 34 g/dL (31-37) Red Cell Distribution Width 14.4 % (11.5-14.5) Platelet Count 331 x10^3/uL (140-400) Neutrophils (%) (Auto) 76 % (31-73) Lymphocytes (%) (Auto) 13 % (24-48) Monocytes (%) (Auto) 11 % (0-9) Eosinophils (%) (Auto) 0 % (0-3) Basophils (%) (Auto) 0 % (0-3) Neutrophils # (Auto) 9.9 x10^3uL (1.8-7.7) Lymphocytes # (Auto) 1.7 x10^3/uL (1.0-4.8) Monocytes # (Auto) 1.4 x10^3/uL (0.0-1.1) Eosinophils # (Auto) 0.0 x10^3/uL (0.0-0.7) Basophils # (Auto) 0.0 x10^3/uL (0.0-0.2) Sodium Level 140 mmol/L (136-145) Potassium Level 3.6 mmol/L (3.5-5.1) Chloride Level 103 mmol/L (98-107) Carbon Dioxide Level 29 mmol/L (21-32) Anion Gap 8 (6-14) Blood Urea Nitrogen 16 mg/dL (7-20) Creatinine 0.8 mg/dL (0.6-1.0) Estimated GFR (Cockcroft-Gault) 81.2 BUN/Creatinine Ratio 20 (6-20) Glucose Level 87 mg/dL (70-99) Calcium Level 8.3 mg/dL (8.5-10.1) Total Bilirubin 0.7 mg/dL (0.2-1.0) Aspartate Amino Transf (AST/SGOT) 15 U/L (15-37) Alanine Aminotransferase (ALT/SGPT) 19 U/L (14-59) Alkaline Phosphatase 57 U/L (46-116) Total Protein 6.3 g/dL (6.4-8.2) Albumin 3.1 g/dL (3.4-5.0) Albumin/Globulin Ratio 1.0 (1.0-1.7) Review of Systems Review of Systems post op soreness otherwise rest of ROS 14 point negative Assessment and Plan Assessmemt and Plan Problems Medical Problems: (1) Incarcerated ventral hernia Status: Acute (2) Small bowel obstruction Status: Acute Comment Review of Relevant I have reviewed the following items brendon (where applicable) has been applied. Labs Laboratory Tests Test 10/09/18 23:05 10/10/18 00:01 10/11/18 06:57 White Blood Count 20.3 x10^3/uL (4.0-11.0) 13.1 x10^3/uL (4.0-11.0) Red Blood Count 5.23 x10^6/uL (3.50-5.40) 4.01 x10^6/uL (3.50-5.40) Hemoglobin 16.3 g/dL (12.0-15.5) 12.7 g/dL (12.0-15.5) Hematocrit 48.5 % (36.0-47.0) 37.6 % (36.0-47.0) Mean Corpuscular Volume 93 fL (79-100) 94 fL (79-100) Mean Corpuscular Hemoglobin 31 pg (25-35) 32 pg (25-35) Mean Corpuscular Hemoglobin Concent 34 g/dL (31-37) 34 g/dL (31-37) Red Cell Distribution Width 14.3 % (11.5-14.5) 14.4 % (11.5-14.5) Platelet Count 434 x10^3/uL (140-400) 331 x10^3/uL (140-400) Neutrophils (%) (Auto) 85 % (31-73) 76 % (31-73) Lymphocytes (%) (Auto) 7 % (24-48) 13 % (24-48) Monocytes (%) (Auto) 8 % (0-9) 11 % (0-9) Eosinophils (%) (Auto) 0 % (0-3) 0 % (0-3) Basophils (%) (Auto) 0 % (0-3) 0 % (0-3) Neutrophils # (Auto) 17.2 x10^3uL (1.8-7.7) 9.9 x10^3uL (1.8-7.7) Lymphocytes # (Auto) 1.4 x10^3/uL (1.0-4.8) 1.7 x10^3/uL (1.0-4.8) Monocytes # (Auto) 1.7 x10^3/uL (0.0-1.1) 1.4 x10^3/uL (0.0-1.1) Eosinophils # (Auto) 0.0 x10^3/uL (0.0-0.7) 0.0 x10^3/uL (0.0-0.7) Basophils # (Auto) 0.0 x10^3/uL (0.0-0.2) 0.0 x10^3/uL (0.0-0.2) Segmented Neutrophils % 76 % (35-66) Band Neutrophils % 11 % (0-9) Lymphocytes % 4 % (24-48) Monocytes % 9 % (0-10) Platelet Estimate Increased (ADEQUATE) Lipase 98 U/L (73-393) Sodium Level 140 mmol/L (136-145) 140 mmol/L (136-145) Potassium Level 3.8 mmol/L (3.5-5.1) 3.6 mmol/L (3.5-5.1) Chloride Level 100 mmol/L (98-107) 103 mmol/L (98-107) Carbon Dioxide Level 28 mmol/L (21-32) 29 mmol/L (21-32) Anion Gap 12 (6-14) 8 (6-14) Blood Urea Nitrogen 19 mg/dL (7-20) 16 mg/dL (7-20) Creatinine 0.9 mg/dL (0.6-1.0) 0.8 mg/dL (0.6-1.0) Estimated GFR (Cockcroft-Gault) 70.8 81.2 BUN/Creatinine Ratio 21 (6-20) 20 (6-20) Glucose Level 113 mg/dL (70-99) 87 mg/dL (70-99) Calcium Level 9.4 mg/dL (8.5-10.1) 8.3 mg/dL (8.5-10.1) Total Bilirubin 0.7 mg/dL (0.2-1.0) 0.7 mg/dL (0.2-1.0) Aspartate Amino Transf (AST/SGOT) 18 U/L (15-37) 15 U/L (15-37) Alanine Aminotransferase (ALT/SGPT) 23 U/L (14-59) 19 U/L (14-59) Alkaline Phosphatase 76 U/L (46-116) 57 U/L (46-116) Total Protein 8.1 g/dL (6.4-8.2) 6.3 g/dL (6.4-8.2) Albumin 4.2 g/dL (3.4-5.0) 3.1 g/dL (3.4-5.0) Albumin/Globulin Ratio 1.1 (1.0-1.7) 1.0 (1.0-1.7) Free Thyroxine 0.96 ng/dL (0.76-1.46) Laboratory Tests Test 10/11/18 06:57 White Blood Count 13.1 x10^3/uL (4.0-11.0) Red Blood Count 4.01 x10^6/uL (3.50-5.40) Hemoglobin 12.7 g/dL (12.0-15.5) Hematocrit 37.6 % (36.0-47.0) Mean Corpuscular Volume 94 fL (79-100) Mean Corpuscular Hemoglobin 32 pg (25-35) Mean Corpuscular Hemoglobin Concent 34 g/dL (31-37) Red Cell Distribution Width 14.4 % (11.5-14.5) Platelet Count 331 x10^3/uL (140-400) Neutrophils (%) (Auto) 76 % (31-73) Lymphocytes (%) (Auto) 13 % (24-48) Monocytes (%) (Auto) 11 % (0-9) Eosinophils (%) (Auto) 0 % (0-3) Basophils (%) (Auto) 0 % (0-3) Neutrophils # (Auto) 9.9 x10^3uL (1.8-7.7) Lymphocytes # (Auto) 1.7 x10^3/uL (1.0-4.8) Monocytes # (Auto) 1.4 x10^3/uL (0.0-1.1) Eosinophils # (Auto) 0.0 x10^3/uL (0.0-0.7) Basophils # (Auto) 0.0 x10^3/uL (0.0-0.2) Sodium Level 140 mmol/L (136-145) Potassium Level 3.6 mmol/L (3.5-5.1) Chloride Level 103 mmol/L (98-107) Carbon Dioxide Level 29 mmol/L (21-32) Anion Gap 8 (6-14) Blood Urea Nitrogen 16 mg/dL (7-20) Creatinine 0.8 mg/dL (0.6-1.0) Estimated GFR (Cockcroft-Gault) 81.2 BUN/Creatinine Ratio 20 (6-20) Glucose Level 87 mg/dL (70-99) Calcium Level 8.3 mg/dL (8.5-10.1) Total Bilirubin 0.7 mg/dL (0.2-1.0) Aspartate Amino Transf (AST/SGOT) 15 U/L (15-37) Alanine Aminotransferase (ALT/SGPT) 19 U/L (14-59) Alkaline Phosphatase 57 U/L (46-116) Total Protein 6.3 g/dL (6.4-8.2) Albumin 3.1 g/dL (3.4-5.0) Albumin/Globulin Ratio 1.0 (1.0-1.7) Microbiology 10/10/18 Anaerobic/Aerobic Culture, Resulted Pending 10/10/18 Anaerobic Culture Result 1 (ALISHA), Resulted Pending 10/10/18 Aerobic Culture, Resulted Pending 10/10/18 Aerobic Culture Result 1 (ALISHA), Resulted Pending 10/10/18 Gram Stain - Final, Resulted 10/10/18 Gram Stain Result 1 (ALISHA) - Final, Resulted 10/10/18 Gram Stain Result 2 (ALISHA) - Final, Resulted Medications Current Medications Sodium Chloride 1,000 ml @ 1,000 mls/hr 1X ONCE IV Last administered on at 23:07; Start 10/09/18 at 23:00; Stop 10/09/18 at 23:59; Status DC Ondansetron HCl (Zofran) 8 mg 1X ONCE IV Last administered on 10/09/18at 23:28; Start 10/09/18 at 23:00; Stop 10/09/18 at 23:01; Status DC Fentanyl Citrate (Fentanyl 2ml Vial) 50 mcg 1X ONCE IV Last administered on 10/09/18at 23:28; Start 10/09/18 at 23:15; Stop 10/09/18 at 23:16; Status DC Iohexol (Omnipaque 300 Mg/ml) 75 ml 1X ONCE IV Last administered on 10/10/18at 01:31; Start 10/10/18 at 01:30; Stop 10/10/18 at 01:49; Status DC Info (CONTRAST GIVEN -- Rx MONITORING) 1 each PRN DAILY PRN MC SEE COMMENTS; Start 10/10/18 at 01:45; Stop 10/12/18 at 01:44 Ondansetron HCl (Zofran) 4 mg 1X ONCE IV Last administered on 10/10/18at 02:15 ; Start 10/10/18 at 02:15; Stop 10/10/18 at 02:16; Status DC Ondansetron HCl (Zofran) 4 mg PRN Q8HRS PRN IV NAUSEA/VOMITING; Start 10/10/18 at 02:30; Stop 10/10/18 at 12:06; Status DC Fentanyl Citrate (Fentanyl 2ml Vial) 50 mcg PRN Q1HR PRN IV PAIN; Start at 02:30; Stop 10/10/18 at 12:07; Status DC Sodium Chloride 1,000 ml @ 125 mls/hr Q8H IV ; Start 10/10/18 at 02:30; Stop at 09:47; Status DC Benzocaine (Hurricaine One) 1 spray 1X ONCE MM ; Start 10/10/18 at 03:45; Stop 10/10/18 at 03:46; Status DC Metronidazole 100 ml @ 100 mls/hr 1X ONCE IV Last administered on 10/10/18at 04:30; Start 10/10/18 at 03:45; Stop 10/10/18 at 04:44; Status DC Fentanyl Citrate (Fentanyl 5ml Vial) 250 mcg STK-MED ONCE .ROUTE ; Start at 04:03; Stop 10/10/18 at 04:04; Status DC Succinylcholine Chloride (Anectine) 200 mg STK-MED ONCE .ROUTE ; Start 10/10/18 at 04:04; Stop 10/10/18 at 04:05; Status DC Rocuronium [place] (Zemuron) 50 mg STK-MED ONCE .ROUTE ; Start 10/10/18 at 04:04 ; Stop 10/10/18 at 04:05; Status DC Isoflurane (Isoflurane) 60 ml STK-MED ONCE IH ; Start 10/10/18 at 04:06; Stop at 04:07; Status DC Dexamethasone Sodium Phosphate (Decadron) 20 mg STK-MED ONCE .ROUTE ; Start 04/20 at 04:06; Stop 10/10/18 at 04:07; Status DC Lidocaine HCl (Lidocaine Pf 2% Vial) 5 ml STK-MED ONCE .ROUTE ; Start 10/10/18 at 04:06; Stop 10/10/18 at 04:07; Status DC Ondansetron HCl (Zofran) 4 mg STK-MED ONCE .ROUTE ; Start 10/10/18 at 04:06; Stop 10/10/18 at 04:07; Status DC Propofol 20 ml @ As Directed STK-MED ONCE IV ; Start 10/10/18 at 04:06; Stop 04/20 at 04:07; Status DC Ringer's Solution 1,000 ml @ 100 mls/hr Q10H IV Last administered on at 06:52; Start 10/10/18 at 04:15; Stop 10/10/18 at 09:47; Status DC Famotidine (Pepcid Vial) 20 mg STK-MED ONCE .ROUTE ; Start 10/10/18 at 04:13; Stop 10/10/18 at 04:14; Status DC Bupivacaine HCl/ Epinephrine Bitart (Sensorcain-Mpf Epi 0.5%-1:[id number]) 30 ml STK -MED ONCE .ROUTE Last administered on 10/10/18at 04:57; Start 10/10/18 at 03:13 ; Stop 10/10/18 at 04:13; Status DC Metoprolol Tartrate (Lopressor Vial) 5 mg STK-MED ONCE IVP ; Start 10/10/18 at 04:28; Stop 10/10/18 at 04:29; Status DC Ondansetron HCl (Zofran) 4 mg PRN Q6HRS PRN IV NAUSEA/VOMITING; Start 10/10/18 at 05:15; Stop 10/11/18 at 05:14; Status DC Fentanyl Citrate (Fentanyl 2ml Vial) 25 mcg PRN Q5MIN PRN IV MILD PAIN; Start 10/10/18 at 05:15; Stop 10/11/18 at 05:14; Status DC Fentanyl Citrate (Fentanyl 2ml Vial) 50 mcg PRN Q5MIN PRN IV MODERATE TO SEVERE PAIN Last administered on 10/10/18at 07:35; Start 10/10/18 at 05:15; Stop 10/11/18 at 05:14; Status DC Morphine Sulfate (Morphine Sulfate) 1 mg PRN Q10MIN PRN IV SEVERE PAIN Last administered on 10/10/18at 07:22; Start 10/10/18 at 05:15; Stop 10/11/18 at 05:14 ; Status DC Ringer's Solution 1,000 ml @ 30 mls/hr Q24H IV Last administered on 10/10/18at 05:15; Start 10/10/18 at 05:15; Stop 10/10/18 at 05:17; Status DC Lidocaine HCl (Xylocaine-Mpf 1% 2ml Vial) 2 ml PRN 1X PRN ID PRIOR TO IV START ; Start 10/10/18 at 05:15; Stop 10/11/18 at 05:14; Status DC Hydromorphone HCl (Dilaudid) 0.5 mg PRN Q10MIN PRN IV SEV PAIN, Second choice Last administered on 10/10/18at 07:59; Start 10/10/18 at 05:15; Stop 10/11/18 at 05:14; Status DC Prochlorperazine Edisylate (Compazine) 5 mg PACU PRN PRN IV NAUSEA, MRX1 Last administered on 10/10/18at 07:49; Start 10/10/18 at 05:15; Stop 10/11/18 at 05:14 ; Status DC Glycopyrrolate (Robinul) 1 mg STK-MED ONCE .ROUTE ; Start 10/10/18 at 05:28; Stop 10/10/18 at 05:29; Status DC Neostigmine Methylsulfate (Neostigmine Methylsulfate) 5 mg STK-MED ONCE .ROUTE ; Start 10/10/18 at 05:29; Stop 10/10/18 at 05:30; Status DC Enoxaparin Sodium (Lovenox 40mg Syringe) 40 mg Q24H SQ ; Start 10/10/18 at 09:00 ; Stop 10/10/18 at 09:45; Status DC Sodium Chloride (Normal Saline Flush) 3 ml QSHIFT PRN IV AFTER MEDS AND BLOOD DRAWS; Start 10/10/18 at 06:30 Potassium Chloride/Sodium Chloride 1,000 ml @ 100 mls/hr Q10H IV Last administered on 10/11/18at 10:13; Start 10/10/18 at 06:30 Hydromorphone HCl 30 ml @ 0 mls/hr CONT PRN PRN IV PER PROTOCOL Last administered on 10/10/18at 07:28; Start 10/10/18 at 06:30 Ondansetron HCl (Zofran) 4 mg PRN Q6HRS PRN IV NAUESA, 1ST CHOICE; Start at 06:30 Throat Lozenges (Chloraseptic) 1 spray PRN Q2HR PRN PO SORE THROAT Last administered on 10/11/18at 00:08; Start 10/10/18 at 06:30 Throat Lozenges (Cepacol Sore Throat Lozenge) 1 coleman PRN Q2HRS PRN PO SORE THROAT; Start 10/10/18 at 06:30 Hydralazine HCl (Apresoline Inj) 20 mg STK-MED ONCE .ROUTE ; Start 10/10/18 at 08:01; Stop 10/10/18 at 08:02; Status DC Hydralazine HCl (Apresoline Inj) 10 mg 1X ONCE IVP Last administered on at 08:05; Start 10/10/18 at 08:02; Stop 10/10/18 at 08:25; Status DC Hydralazine HCl (Apresoline Inj) 10 mg PRN Q4HRS PRN IVP ELEVATED BP, SEE COMMENTS; Start 10/10/18 at 08:15 Enoxaparin Sodium (Lovenox 40mg Syringe) 40 mg Q24H SQ Last administered on 04/20at 21:37; Start 10/10/18 at 21:00 Throat Lozenges (Chloraseptic) 1 spray PRN Q2HR PRN PO SORE THROAT; Start 10/10 at 23:00 Pantoprazole Sodium (PROTONIX VIAL for IV PUSH) 40 mg DAILYAC IVP ; Start at 07:30 Pantoprazole Sodium (PROTONIX VIAL for IV PUSH) 40 mg 1X ONCE IVP Last administered on 10/11/18at 10:11; Start 10/11/18 at 09:30; Stop 10/11/18 at 09:31 ; Status DC Vitals/I & O Vital Sign - Last 24 Hours 10/10/18 10/10/18 10/10/18 10/10/18 15:00 19:00 20:00 23:00 Temp 98.4 98.7 98.6 98.4 98.7 98.6 Pulse 83 60 65 Resp 18 18 18 B/P (MAP) 113/60 (77) 120/67 (84) 124/76 (92) Pulse Ox 95 96 94 O2 Delivery Room Air Room Air Room Air Room Air 10/11/18 10/11/18 03:00 07:00 Temp 98.6 98.2 98.6 98.2 Pulse 74 73 Resp 18 18 B/P (MAP) 148/89 (108) 136/80 (98) Pulse Ox 96 94 O2 Delivery Room Air Room Air Intake and Output 10/10/18 10/10/18 10/11/18 14:59 22:59 06:59 Intake Total 50 ml 0 ml Output Total 275 ml 500 ml 310 ml Balance -225 ml -500 ml -310 ml VENANCIO RIVAS MD Oct 11, 2018 10:57
[2018-10-11 11:00] VITALS: BP 145/86
--- NOTE | 2018-10-11 12:00 | NUR ---
NG clamped per order.
[2018-10-11 15:00] VITALS: BP 147/92
--- NOTE | 2018-10-11 17:07 | PATHOLOGY ---
[facility] Accession Number: [id number] . 01 Material submitted: . small bowel - SMALL BOWEL . 01 Clinical history: . Incarcerated ventral hernia . 02 Diagnosis: Segment of small bowel, incarcerated ventral hernia repair: - Focal mucosal chronic ischemic changes, with congestion and focal recent hemorrhage and ischemic changes of submucosa and muscularis propria. . 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 (JPM:[facility] 10/11/2018) QTP/10/11/2018 . 02 Electronically signed: . Ochoa Mcarthur MD, Pathologist NPI- [id number] . 01 Gross description: . The specimen is received in formalin, labeled "Darlene, Yen, small bowel" and consists of an unoriented segment of bowel measuring 9.0 cm in length and 2.0-2.5 cm in diameter with attached fat measuring up to 2.6 cm. Both margins are closed with martin. The serosa is pink-rutledge, smooth, and hemorrhagic. Opening reveals a pink-hubbard mucosa with no masses or lesions. Curatorial Specialist sections are submitted as follows: . A1-A2: Margins A3-A4: Curatorial Specialist from mid specimen (SDY; 10/10/2018) SYU/SYU . 02 Pathologist provided ICD-10: K92.2, K63.89 . 02 CPT . 129187 Specimen Comment: A courtesy copy of this report has been sent to Specimen Comment: [phone]. Specimen Comment: Report sent to Performed at: [address], [place], [place] [id number] MD Moris Al MD Phone: [phone] Performed at: 02 [facility] [address], [place] [id number] MD Ochoa Mcarthur MD Phone: [phone]
[2018-10-11 19:00] VITALS: BP 144/91
[2018-10-11] MEDS: ENOXAPARIN 40 MG/0.4 ML SYRINGE. SQ SCH (21:05)
[2018-10-11 23:00] VITALS: BP 149/90
[2018-10-11] MEDS: HYDROmorphone 12mg/30ml PCA 30 ML IV PRN (23:12)
[2018-10-12 02:49] VITALS: BP 150/93
[2018-10-12] MEDS: PANTOPRAZOLE IV PUSH 40 MG VIAL. IVP SCH (06:14)
[2018-10-12] MEDS: POTASSIUM CL 20MEQ-0.45% NACL 1,000 ML IV SCH ×2 (06:15→19:01)
[2018-10-12 07:00] VITALS: BP 157/91
[2018-10-12] MEDS: hydrALAZINE 20 MG/ML VIAL. IVP PRN ×2 (09:16→19:24)
--- NOTE | 2018-10-12 09:49 | PDOC ---
MARGARET BOWLING CASHIER AND SALESPERSON 10/12/18 0949: SURGICAL PROGRESS NOTE Subjective ng out no emesis + bloating, no flatus Vital Signs Vital Signs Date Time Temp Pulse Resp B/P (MAP) Pulse Ox O2 Delivery O2 Flow Rate FiO2 10/12/18 09:16 85 157/91 10/12/18 07:00 98.2 16 95 Room Air 98.2 10/11/18 08:00 2.0 I&O Intake and Output 10/12/18 07:00 Intake Total 100 ml Output Total 20 ml Balance 80 ml Intake Oral 100 ml Output Urine Total 0 ml Gastric Drainage Total 20 ml # Voids 4 General: Alert, Oriented X3, Cooperative, No acute distress Abdomen: Soft, Other (dressing dry) Labs Laboratory Tests Test 10/11/18 06:57 White Blood Count 13.1 x10^3/uL (4.0-11.0) Red Blood Count 4.01 x10^6/uL (3.50-5.40) Hemoglobin 12.7 g/dL (12.0-15.5) Hematocrit 37.6 % (36.0-47.0) Mean Corpuscular Volume 94 fL (79-100) Mean Corpuscular Hemoglobin 32 pg (25-35) Mean Corpuscular Hemoglobin Concent 34 g/dL (31-37) Red Cell Distribution Width 14.4 % (11.5-14.5) Platelet Count 331 x10^3/uL (140-400) Neutrophils (%) (Auto) 76 % (31-73) Lymphocytes (%) (Auto) 13 % (24-48) Monocytes (%) (Auto) 11 % (0-9) Eosinophils (%) (Auto) 0 % (0-3) Basophils (%) (Auto) 0 % (0-3) Neutrophils # (Auto) 9.9 x10^3uL (1.8-7.7) Lymphocytes # (Auto) 1.7 x10^3/uL (1.0-4.8) Monocytes # (Auto) 1.4 x10^3/uL (0.0-1.1) Eosinophils # (Auto) 0.0 x10^3/uL (0.0-0.7) Basophils # (Auto) 0.0 x10^3/uL (0.0-0.2) Sodium Level 140 mmol/L (136-145) Potassium Level 3.6 mmol/L (3.5-5.1) Chloride Level 103 mmol/L (98-107) Carbon Dioxide Level 29 mmol/L (21-32) Anion Gap 8 (6-14) Blood Urea Nitrogen 16 mg/dL (7-20) Creatinine 0.8 mg/dL (0.6-1.0) Estimated GFR (Cockcroft-Gault) 81.2 BUN/Creatinine Ratio 20 (6-20) Glucose Level 87 mg/dL (70-99) Calcium Level 8.3 mg/dL (8.5-10.1) Total Bilirubin 0.7 mg/dL (0.2-1.0) Aspartate Amino Transf (AST/SGOT) 15 U/L (15-37) Alanine Aminotransferase (ALT/SGPT) 19 U/L (14-59) Alkaline Phosphatase 57 U/L (46-116) Total Protein 6.3 g/dL (6.4-8.2) Albumin 3.1 g/dL (3.4-5.0) Albumin/Globulin Ratio 1.0 (1.0-1.7) Problem List Problems Medical Problems: (1) Incarcerated ventral hernia Status: Acute (2) Small bowel obstruction Status: Acute Assessment/Plan npo, await bowel function MEREDITH WILKINSON MD 10/12/18 1433: SURGICAL PROGRESS NOTE Assessment/Plan pt seen thirsty voiding without difficulty after sharp out will try clear liquids ambulate MARGARET BOWLING APRN Oct 12, 2018 09:49 MEREDITH WILKINSON MD Oct 12, 2018 14:33
--- NOTE | 2018-10-12 10:44 | NUR ---
SW following. Discussed with RN, pt is from home. Still awaiting diet to be advanced. RN advised no SW needs at this time. SW will continue to follow.
[2018-10-12 11:00] VITALS: BP 146/93
--- NOTE | 2018-10-12 12:14 | PDOC ---
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 tomorrow-she seems agreeable Await for bowel function Vitals Vitals Vital Signs Date Time Temp Pulse Resp B/P (MAP) Pulse Ox O2 Delivery O2 Flow Rate FiO2 10/12/18 11:00 98.1 90 16 146/93 (110) 97 Room Air 98.1 10/11/18 08:00 2.0 Physical Exam General: Alert, Oriented X3, Cooperative, No acute distress Heart: Regular rate, Normal S1, Normal S2 Lungs: Clear Abdomen: Soft, Other (dressing dry) Extremities: No clubbing, No cyanosis Skin: Other (warm, dry) Review of Systems Review of Systems bloated, no flatus, no emesis Assessment and Plan Assessmemt and Plan Problems Medical Problems: (1) Incarcerated ventral hernia Status: Acute (2) Small bowel obstruction Status: Acute Comment Review of Relevant I have reviewed the following items brendon (where applicable) has been applied. Labs Laboratory Tests Test 10/11/18 06:57 White Blood Count 13.1 x10^3/uL (4.0-11.0) Red Blood Count 4.01 x10^6/uL (3.50-5.40) Hemoglobin 12.7 g/dL (12.0-15.5) Hematocrit 37.6 % (36.0-47.0) Mean Corpuscular Volume 94 fL (79-100) Mean Corpuscular Hemoglobin 32 pg (25-35) Mean Corpuscular Hemoglobin Concent 34 g/dL (31-37) Red Cell Distribution Width 14.4 % (11.5-14.5) Platelet Count 331 x10^3/uL (140-400) Neutrophils (%) (Auto) 76 % (31-73) Lymphocytes (%) (Auto) 13 % (24-48) Monocytes (%) (Auto) 11 % (0-9) Eosinophils (%) (Auto) 0 % (0-3) Basophils (%) (Auto) 0 % (0-3) Neutrophils # (Auto) 9.9 x10^3uL (1.8-7.7) Lymphocytes # (Auto) 1.7 x10^3/uL (1.0-4.8) Monocytes # (Auto) 1.4 x10^3/uL (0.0-1.1) Eosinophils # (Auto) 0.0 x10^3/uL (0.0-0.7) Basophils # (Auto) 0.0 x10^3/uL (0.0-0.2) Sodium Level 140 mmol/L (136-145) Potassium Level 3.6 mmol/L (3.5-5.1) Chloride Level 103 mmol/L (98-107) Carbon Dioxide Level 29 mmol/L (21-32) Anion Gap 8 (6-14) Blood Urea Nitrogen 16 mg/dL (7-20) Creatinine 0.8 mg/dL (0.6-1.0) Estimated GFR (Cockcroft-Gault) 81.2 BUN/Creatinine Ratio 20 (6-20) Glucose Level 87 mg/dL (70-99) Calcium Level 8.3 mg/dL (8.5-10.1) Total Bilirubin 0.7 mg/dL (0.2-1.0) Aspartate Amino Transf (AST/SGOT) 15 U/L (15-37) Alanine Aminotransferase (ALT/SGPT) 19 U/L (14-59) Alkaline Phosphatase 57 U/L (46-116) Total Protein 6.3 g/dL (6.4-8.2) Albumin 3.1 g/dL (3.4-5.0) Albumin/Globulin Ratio 1.0 (1.0-1.7) Microbiology 10/10/18 Anaerobic/Aerobic Culture, Resulted Pending 10/10/18 Anaerobic Culture Result 1 (ALISHA), Resulted Pending 10/10/18 Aerobic Culture, Resulted Pending 10/10/18 Aerobic Culture Result 1 (ALISHA), Resulted Pending 10/10/18 Gram Stain - Final, Resulted 10/10/18 Gram Stain Result 1 (ALISHA) - Final, Resulted 10/10/18 Gram Stain Result 2 (ALISHA) - Final, Resulted Medications Current Medications Sodium Chloride 1,000 ml @ 1,000 mls/hr 1X ONCE IV Last administered on at 23:07; Start 10/09/18 at 23:00; Stop 10/09/18 at 23:59; Status DC Ondansetron HCl (Zofran) 8 mg 1X ONCE IV Last administered on 10/09/18at 23:28; Start 10/09/18 at 23:00; Stop 10/09/18 at 23:01; Status DC Fentanyl Citrate (Fentanyl 2ml Vial) 50 mcg 1X ONCE IV Last administered on 10/09/18at 23:28; Start 10/09/18 at 23:15; Stop 10/09/18 at 23:16; Status DC Iohexol (Omnipaque 300 Mg/ml) 75 ml 1X ONCE IV Last administered on 10/10/18at 01:31; Start 10/10/18 at 01:30; Stop 10/10/18 at 01:49; Status DC Info (CONTRAST GIVEN -- Rx MONITORING) 1 each PRN DAILY PRN MC SEE COMMENTS; Start 10/10/18 at 01:45; Stop 10/12/18 at 01:44; Status DC Ondansetron HCl (Zofran) 4 mg 1X ONCE IV Last administered on 10/10/18at 02:15 ; Start 10/10/18 at 02:15; Stop 10/10/18 at 02:16; Status DC Ondansetron HCl (Zofran) 4 mg PRN Q8HRS PRN IV NAUSEA/VOMITING; Start 10/10/18 at 02:30; Stop 10/10/18 at 12:06; Status DC Fentanyl Citrate (Fentanyl 2ml Vial) 50 mcg PRN Q1HR PRN IV PAIN; Start at 02:30; Stop 10/10/18 at 12:07; Status DC Sodium Chloride 1,000 ml @ 125 mls/hr Q8H IV ; Start 10/10/18 at 02:30; Stop at 09:47; Status DC Benzocaine (Hurricaine One) 1 spray 1X ONCE MM ; Start 10/10/18 at 03:45; Stop 10/10/18 at 03:46; Status DC Metronidazole 100 ml @ 100 mls/hr 1X ONCE IV Last administered on 10/10/18at 04:30; Start 10/10/18 at 03:45; Stop 10/10/18 at 04:44; Status DC Fentanyl Citrate (Fentanyl 5ml Vial) 250 mcg STK-MED ONCE .ROUTE ; Start at 04:03; Stop 10/10/18 at 04:04; Status DC Succinylcholine Chloride (Anectine) 200 mg STK-MED ONCE .ROUTE ; Start 10/10/18 at 04:04; Stop 10/10/18 at 04:05; Status DC Rocuronium Meraux (Zemuron) 50 mg STK-MED ONCE .ROUTE ; Start 10/10/18 at 04:04 ; Stop 10/10/18 at 04:05; Status DC Isoflurane (Isoflurane) 60 ml STK-MED ONCE IH ; Start 10/10/18 at 04:06; Stop at 04:07; Status DC Dexamethasone Sodium Phosphate (Decadron) 20 mg STK-MED ONCE .ROUTE ; Start 04/20 at 04:06; Stop 10/10/18 at 04:07; Status DC Lidocaine HCl (Lidocaine Pf 2% Vial) 5 ml STK-MED ONCE .ROUTE ; Start 10/10/18 at 04:06; Stop 10/10/18 at 04:07; Status DC Ondansetron HCl (Zofran) 4 mg STK-MED ONCE .ROUTE ; Start 10/10/18 at 04:06; Stop 10/10/18 at 04:07; Status DC Propofol 20 ml @ As Directed STK-MED ONCE IV ; Start 10/10/18 at 04:06; Stop 04/20 at 04:07; Status DC Ringer's Solution 1,000 ml @ 100 mls/hr Q10H IV Last administered on at 06:52; Start 10/10/18 at 04:15; Stop 10/10/18 at 09:47; Status DC Famotidine (Pepcid Vial) 20 mg STK-MED ONCE .ROUTE ; Start 10/10/18 at 04:13; Stop 10/10/18 at 04:14; Status DC Bupivacaine HCl/ Epinephrine Bitart (Sensorcain-Mpf Epi 0.5%-1:[id number]) 30 ml STK -MED ONCE .ROUTE Last administered on 10/10/18at 04:57; Start 10/10/18 at 03:13 ; Stop 10/10/18 at 04:13; Status DC Metoprolol Tartrate (Lopressor Vial) 5 mg STK-MED ONCE IVP ; Start 10/10/18 at 04:28; Stop 10/10/18 at 04:29; Status DC Ondansetron HCl (Zofran) 4 mg PRN Q6HRS PRN IV NAUSEA/VOMITING; Start 10/10/18 at 05:15; Stop 10/11/18 at 05:14; Status DC Fentanyl Citrate (Fentanyl 2ml Vial) 25 mcg PRN Q5MIN PRN IV MILD PAIN; Start 10/10/18 at 05:15; Stop 10/11/18 at 05:14; Status DC Fentanyl Citrate (Fentanyl 2ml Vial) 50 mcg PRN Q5MIN PRN IV MODERATE TO SEVERE PAIN Last administered on 10/10/18at 07:35; Start 10/10/18 at 05:15; Stop 10/11/18 at 05:14; Status DC Morphine Sulfate (Morphine Sulfate) 1 mg PRN Q10MIN PRN IV SEVERE PAIN Last administered on 10/10/18at 07:22; Start 10/10/18 at 05:15; Stop 10/11/18 at 05:14 ; Status DC Ringer's Solution 1,000 ml @ 30 mls/hr Q24H IV Last administered on 10/10/18at 05:15; Start 10/10/18 at 05:15; Stop 10/10/18 at 05:17; Status DC Lidocaine HCl (Xylocaine-Mpf 1% 2ml Vial) 2 ml PRN 1X PRN ID PRIOR TO IV START ; Start 10/10/18 at 05:15; Stop 10/11/18 at 05:14; Status DC Hydromorphone HCl (Dilaudid) 0.5 mg PRN Q10MIN PRN IV SEV PAIN, Second choice Last administered on 10/10/18at 07:59; Start 10/10/18 at 05:15; Stop 10/11/18 at 05:14; Status DC Prochlorperazine Edisylate (Compazine) 5 mg PACU PRN PRN IV NAUSEA, MRX1 Last administered on 10/10/18at 07:49; Start 10/10/18 at 05:15; Stop 10/11/18 at 05:14 ; Status DC Glycopyrrolate (Robinul) 1 mg STK-MED ONCE .ROUTE ; Start 10/10/18 at 05:28; Stop 10/10/18 at 05:29; Status DC Neostigmine Methylsulfate (Neostigmine Methylsulfate) 5 mg STK-MED ONCE .ROUTE ; Start 10/10/18 at 05:29; Stop 10/10/18 at 05:30; Status DC Enoxaparin Sodium (Lovenox 40mg Syringe) 40 mg Q24H SQ ; Start 10/10/18 at 09:00 ; Stop 10/10/18 at 09:45; Status DC Sodium Chloride (Normal Saline Flush) 3 ml QSHIFT PRN IV AFTER MEDS AND BLOOD DRAWS; Start 10/10/18 at 06:30 Potassium Chloride/Sodium Chloride 1,000 ml @ 100 mls/hr Q10H IV Last administered on 10/12/18at 06:15; Start 10/10/18 at 06:30 Hydromorphone HCl 30 ml @ 0 mls/hr CONT PRN PRN IV PER PROTOCOL Last administered on 10/11/18at 23:12; Start 10/10/18 at 06:30 Ondansetron HCl (Zofran) 4 mg PRN Q6HRS PRN IV NAUESA, 1ST CHOICE; Start at 06:30 Throat Lozenges (Chloraseptic) 1 spray PRN Q2HR PRN PO SORE THROAT Last administered on 10/11/18at 00:08; Start 10/10/18 at 06:30 Throat Lozenges (Cepacol Sore Throat Lozenge) 1 coleman PRN Q2HRS PRN PO SORE THROAT; Start 10/10/18 at 06:30 Hydralazine HCl (Apresoline Inj) 20 mg STK-MED ONCE .ROUTE ; Start 10/10/18 at 08:01; Stop 10/10/18 at 08:02; Status DC Hydralazine HCl (Apresoline Inj) 10 mg 1X ONCE IVP Last administered on at 08:05; Start 10/10/18 at 08:02; Stop 10/10/18 at 08:25; Status DC Hydralazine HCl (Apresoline Inj) 10 mg PRN Q4HRS PRN IVP ELEVATED BP, SEE COMMENTS Last administered on 10/12/18at 09:16; Start 10/10/18 at 08:15 Enoxaparin Sodium (Lovenox 40mg Syringe) 40 mg Q24H SQ Last administered on 05/21at 21:05; Start 10/10/18 at 21:00 Throat Lozenges (Chloraseptic) 1 spray PRN Q2HR PRN PO SORE THROAT; Start 10/10 at 23:00; Stop 10/11/18 at 16:48; Status DC Pantoprazole Sodium (PROTONIX VIAL for IV PUSH) 40 mg DAILYAC IVP Last administered on 10/12/18at 06:14; Start 10/12/18 at 07:30 Pantoprazole Sodium (PROTONIX VIAL for IV PUSH) 40 mg 1X ONCE IVP Last administered on 10/11/18at 10:11; Start 10/11/18 at 09:30; Stop 10/11/18 at 09:31 ; Status DC Vitals/I & O Vital Sign - Last 24 Hours 10/11/18 10/11/18 10/11/18 10/11/18 15:00 19:00 20:20 23:00 Temp 98.2 99.0 99.1 98.2 99.0 99.1 Pulse 82 84 83 Resp 16 17 18 B/P (MAP) 147/92 (110) 144/91 (108) 149/90 (109) Pulse Ox 96 97 O2 Delivery Room Air Room Air Room Air Room Air 10/11/18 10/11/18 10/12/18 10/12/18 23:12 23:59 02:49 07:00 Temp 99.4 98.2 99.4 98.2 Pulse 90 85 Resp 20 16 19 16 B/P (MAP) 150/93 (112) 157/91 (113) Pulse Ox 96 96 95 O2 Delivery Room Air Room Air Room Air Room Air 10/12/18 10/12/18 10/12/18 08:00 09:16 11:00 Temp 98.1 98.1 Pulse 85 90 Resp 16 B/P (MAP) 157/91 146/93 (110) Pulse Ox 97 O2 Delivery Room Air Room Air Intake and Output 10/11/18 10/11/18 10/12/18 14:59 22:59 06:59 Intake Total 50 ml 50 ml Output Total 20 ml Balance 30 ml 50 ml VENANCIO RIVAS MD Oct 12, 2018 12:14
[2018-10-12 15:00] VITALS: BP 160/105
[2018-10-12 19:00] VITALS: BP 185/110
[2018-10-12] MEDS: ENOXAPARIN 40 MG/0.4 ML SYRINGE. SQ SCH (20:57)
[2018-10-12 23:00] VITALS: BP 137/88
[2018-10-13] VITALS (7 sets, daily range): BP systolic 123–157; BP diastolic 75–99
[2018-10-13] MEDS: PANTOPRAZOLE IV PUSH 40 MG VIAL. IVP SCH (06:13)
--- NOTE | 2018-10-13 07:42 | PDOC ---
SURGICAL PROGRESS NOTE Subjective some nausea with po Vital Signs Vital Signs Date Time Temp Pulse Resp B/P (MAP) Pulse Ox O2 Delivery O2 Flow Rate FiO2 10/13/18 07:00 97.7 94 17 135/96 (109) 97 Room Air 97.7 I&O Intake and Output 10/13/18 07:00 Intake Total 1340 ml Balance 1340 ml Intake Oral 100 ml IV Total 1240 ml # Voids 8 PATIENT HAS A BELCHER: No General: Alert Abdomen: Soft Problem List Problems Medical Problems: (1) Incarcerated ventral hernia Status: Acute (2) Small bowel obstruction Status: Acute Assessment/Plan POD 3 SBR for ischemic bowel po slowly ambulate MEREDITH WILKINSON MD Oct 13, 2018 07:42
[2018-10-13] MEDS ORDERED: HYDROmorphone 2 MG/ML VIAL IVP PRN (08:30)
[2018-10-13] MEDS ORDERED: oxyCODONE/APAP 10/325 1 TAB TABLET PO PRN (08:30)
[2018-10-13] MEDS: ENOXAPARIN 40 MG/0.4 ML SYRINGE. SQ SCH ×2 (09:24→21:21)
--- NOTE | 2018-10-13 09:26 | PDOC ---
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 IV pushes every 4 and by mouth pain meds She agrees with my plan AMbulate Vitals Vitals Vital Signs Date Time Temp Pulse Resp B/P (MAP) Pulse Ox O2 Delivery O2 Flow Rate FiO2 10/13/18 07:00 97.7 94 17 135/96 (109) 97 Room Air 97.7 Physical Exam General: Alert Heart: Regular rate, Normal S1, Normal S2 Lungs: Clear Abdomen: Soft Extremities: No clubbing, No cyanosis Skin: Other (warm, dry) Review of Systems Review of Systems Nausea, postop pain, the rest of ROS 14 point negative Assessment and Plan Assessmemt and Plan Problems Medical Problems: (1) Incarcerated ventral hernia Status: Acute (2) Small bowel obstruction Status: Acute Comment Review of Relevant I have reviewed the following items brendon (where applicable) has been applied. Labs Microbiology 10/10/18 Anaerobic/Aerobic Culture, Resulted Pending 10/10/18 Anaerobic Culture Result 1 (ALISHA), Resulted Pending 10/10/18 Aerobic Culture - Preliminary, Resulted 10/10/18 Aerobic Culture Result 1 (ALISHA) - Preliminary, Resulted 10/10/18 Gram Stain - Final, Resulted 10/10/18 Gram Stain Result 1 (ALISHA) - Final, Resulted 10/10/18 Gram Stain Result 2 (ALISHA) - Final, Resulted Medications Current Medications Sodium Chloride 1,000 ml @ 1,000 mls/hr 1X ONCE IV Last administered on at 23:07; Start 10/09/18 at 23:00; Stop 10/09/18 at 23:59; Status DC Ondansetron HCl (Zofran) 8 mg 1X ONCE IV Last administered on 10/09/18at 23:28; Start 10/09/18 at 23:00; Stop 10/09/18 at 23:01; Status DC Fentanyl Citrate (Fentanyl 2ml Vial) 50 mcg 1X ONCE IV Last administered on 10/09/18at 23:28; Start 10/09/18 at 23:15; Stop 10/09/18 at 23:16; Status DC Iohexol (Omnipaque 300 Mg/ml) 75 ml 1X ONCE IV Last administered on 10/10/18at 01:31; Start 10/10/18 at 01:30; Stop 10/10/18 at 01:49; Status DC Info (CONTRAST GIVEN -- Rx MONITORING) 1 each PRN DAILY PRN MC SEE COMMENTS; Start 10/10/18 at 01:45; Stop 10/12/18 at 01:44; Status DC Ondansetron HCl (Zofran) 4 mg 1X ONCE IV Last administered on 10/10/18at 02:15 ; Start 10/10/18 at 02:15; Stop 10/10/18 at 02:16; Status DC Ondansetron HCl (Zofran) 4 mg PRN Q8HRS PRN IV NAUSEA/VOMITING; Start 10/10/18 at 02:30; Stop 10/10/18 at 12:06; Status DC Fentanyl Citrate (Fentanyl 2ml Vial) 50 mcg PRN Q1HR PRN IV PAIN; Start at 02:30; Stop 10/10/18 at 12:07; Status DC Sodium Chloride 1,000 ml @ 125 mls/hr Q8H IV ; Start 10/10/18 at 02:30; Stop at 09:47; Status DC Benzocaine (Hurricaine One) 1 spray 1X ONCE MM ; Start 10/10/18 at 03:45; Stop 10/10/18 at 03:46; Status DC Metronidazole 100 ml @ 100 mls/hr 1X ONCE IV Last administered on 10/10/18at 04:30; Start 10/10/18 at 03:45; Stop 10/10/18 at 04:44; Status DC Fentanyl Citrate (Fentanyl 5ml Vial) 250 mcg STK-MED ONCE .ROUTE ; Start at 04:03; Stop 10/10/18 at 04:04; Status DC Succinylcholine Chloride (Anectine) 200 mg STK-MED ONCE .ROUTE ; Start 10/10/18 at 04:04; Stop 10/10/18 at 04:05; Status DC Rocuronium [place] (Zemuron) 50 mg STK-MED ONCE .ROUTE ; Start 10/10/18 at 04:04 ; Stop 10/10/18 at 04:05; Status DC Isoflurane (Isoflurane) 60 ml STK-MED ONCE IH ; Start 10/10/18 at 04:06; Stop at 04:07; Status DC Dexamethasone Sodium Phosphate (Decadron) 20 mg STK-MED ONCE .ROUTE ; Start 04/20 at 04:06; Stop 10/10/18 at 04:07; Status DC Lidocaine HCl (Lidocaine Pf 2% Vial) 5 ml STK-MED ONCE .ROUTE ; Start 10/10/18 at 04:06; Stop 10/10/18 at 04:07; Status DC Ondansetron HCl (Zofran) 4 mg STK-MED ONCE .ROUTE ; Start 10/10/18 at 04:06; Stop 10/10/18 at 04:07; Status DC Propofol 20 ml @ As Directed STK-MED ONCE IV ; Start 10/10/18 at 04:06; Stop 04/20 at 04:07; Status DC Ringer's Solution 1,000 ml @ 100 mls/hr Q10H IV Last administered on at 06:52; Start 10/10/18 at 04:15; Stop 10/10/18 at 09:47; Status DC Famotidine (Pepcid Vial) 20 mg STK-MED ONCE .ROUTE ; Start 10/10/18 at 04:13; Stop 10/10/18 at 04:14; Status DC Bupivacaine HCl/ Epinephrine Bitart (Sensorcain-Mpf Epi 0.5%-1:[id number]) 30 ml STK -MED ONCE .ROUTE Last administered on 10/10/18at 04:57; Start 10/10/18 at 03:13 ; Stop 10/10/18 at 04:13; Status DC Metoprolol Tartrate (Lopressor Vial) 5 mg STK-MED ONCE IVP ; Start 10/10/18 at 04:28; Stop 10/10/18 at 04:29; Status DC Ondansetron HCl (Zofran) 4 mg PRN Q6HRS PRN IV NAUSEA/VOMITING; Start 10/10/18 at 05:15; Stop 10/11/18 at 05:14; Status DC Fentanyl Citrate (Fentanyl 2ml Vial) 25 mcg PRN Q5MIN PRN IV MILD PAIN; Start 10/10/18 at 05:15; Stop 10/11/18 at 05:14; Status DC Fentanyl Citrate (Fentanyl 2ml Vial) 50 mcg PRN Q5MIN PRN IV MODERATE TO SEVERE PAIN Last administered on 10/10/18at 07:35; Start 10/10/18 at 05:15; Stop 10/11/18 at 05:14; Status DC Morphine Sulfate (Morphine Sulfate) 1 mg PRN Q10MIN PRN IV SEVERE PAIN Last administered on 10/10/18at 07:22; Start 10/10/18 at 05:15; Stop 10/11/18 at 05:14 ; Status DC Ringer's Solution 1,000 ml @ 30 mls/hr Q24H IV Last administered on 10/10/18at 05:15; Start 10/10/18 at 05:15; Stop 10/10/18 at 05:17; Status DC Lidocaine HCl (Xylocaine-Mpf 1% 2ml Vial) 2 ml PRN 1X PRN ID PRIOR TO IV START ; Start 10/10/18 at 05:15; Stop 10/11/18 at 05:14; Status DC Hydromorphone HCl (Dilaudid) 0.5 mg PRN Q10MIN PRN IV SEV PAIN, Second choice Last administered on 10/10/18at 07:59; Start 10/10/18 at 05:15; Stop 10/11/18 at 05:14; Status DC Prochlorperazine Edisylate (Compazine) 5 mg PACU PRN PRN IV NAUSEA, MRX1 Last administered on 10/10/18at 07:49; Start 10/10/18 at 05:15; Stop 10/11/18 at 05:14 ; Status DC Glycopyrrolate (Robinul) 1 mg STK-MED ONCE .ROUTE ; Start 10/10/18 at 05:28; Stop 10/10/18 at 05:29; Status DC Neostigmine Methylsulfate (Neostigmine Methylsulfate) 5 mg STK-MED ONCE .ROUTE ; Start 10/10/18 at 05:29; Stop 10/10/18 at 05:30; Status DC Enoxaparin Sodium (Lovenox 40mg Syringe) 40 mg Q24H SQ ; Start 10/10/18 at 09:00 ; Stop 10/10/18 at 09:45; Status DC Sodium Chloride (Normal Saline Flush) 3 ml QSHIFT PRN IV AFTER MEDS AND BLOOD DRAWS; Start 10/10/18 at 06:30 Potassium Chloride/Sodium Chloride 1,000 ml @ 60 mls/hr [id number] IV Last administered on 10/12/18at 19:01; Start 10/10/18 at 06:30 Hydromorphone HCl 30 ml @ 0 mls/hr CONT PRN PRN IV PER PROTOCOL Last administered on 10/11/18at 23:12; Start 10/10/18 at 06:30; Stop 10/13/18 at 08:20 ; Status DC Ondansetron HCl (Zofran) 4 mg PRN Q6HRS PRN IV NAUESA, 1ST CHOICE Last administered on 10/12/18at 18:32; Start 10/10/18 at 06:30 Throat Lozenges (Chloraseptic) 1 spray PRN Q2HR PRN PO SORE THROAT, 2ND CHOICE Last administered on 10/11/18at 00:08; Start 10/10/18 at 06:30 Throat Lozenges (Cepacol Sore Throat Lozenge) 1 coleman PRN Q2HRS PRN PO SORE THROAT, 1ST CHOICE; Start 10/10/18 at 06:30 Hydralazine HCl (Apresoline Inj) 20 mg STK-MED ONCE .ROUTE ; Start 10/10/18 at 08:01; Stop 10/10/18 at 08:02; Status DC Hydralazine HCl (Apresoline Inj) 10 mg 1X ONCE IVP Last administered on at 08:05; Start 10/10/18 at 08:02; Stop 10/10/18 at 08:25; Status DC Hydralazine HCl (Apresoline Inj) 10 mg PRN Q4HRS PRN IVP ELEVATED BP, SEE COMMENTS Last administered on 10/12/18at 19:24; Start 10/10/18 at 08:15 Enoxaparin Sodium (Lovenox 40mg Syringe) 40 mg Q24H SQ Last administered on 05/21at 21:05; Start 10/10/18 at 21:00; Stop 10/12/18 at 12:38; Status DC Throat Lozenges (Chloraseptic) 1 spray PRN Q2HR PRN PO SORE THROAT; Start 10/10 at 23:00; Stop 10/11/18 at 16:48; Status DC Pantoprazole Sodium (PROTONIX VIAL for IV PUSH) 40 mg DAILYAC IVP Last administered on 10/13/18at 06:13; Start 10/12/18 at 07:30 Pantoprazole Sodium (PROTONIX VIAL for IV PUSH) 40 mg 1X ONCE IVP Last administered on 10/11/18at 10:11; Start 10/11/18 at 09:30; Stop 10/11/18 at 09:31 ; Status DC Enoxaparin Sodium (Lovenox 40mg Syringe) 40 mg Q12HR SQ Last administered on 06/20at 20:57; Start 10/12/18 at 21:00 Hydromorphone HCl (Dilaudid) 0.4 mg PRN Q4HRS PRN IVP PAIN SEVERE; Start at 08:30 Oxycodone/ Acetaminophen (Percocet 5/325) 1 tab PRN Q4HRS PRN PO PAIN MILD TO MOD; Start 10/13/18 at 08:30 Oxycodone/ Acetaminophen (Percocet 10/325) 1 tab PRN Q4HRS PRN PO pain SEVERE; Start 10/13/18 at 08:30 Vitals/I & O Vital Sign - Last 24 Hours 10/12/18 10/12/18 10/12/18 10/12/18 11:00 15:00 19:00 19:24 Temp 98.1 98.3 98.9 98.1 98.3 98.9 Pulse 90 102 85 85 Resp 16 16 16 B/P (MAP) 146/93 (110) 160/105 (123) 185/110 (135) 185/110 Pulse Ox 97 92 98 O2 Delivery Room Air Room Air Room Air 10/12/18 10/12/18 10/13/18 10/13/18 20:00 23:00 03:00 07:00 Temp 99.6 98.4 97.7 99.6 98.4 97.7 Pulse 97 86 94 Resp 16 18 17 B/P (MAP) 137/88 (104) 137/86 (103) 135/96 (109) Pulse Ox 98 97 97 O2 Delivery Room Air Room Air Room Air Room Air Intake and Output 4/12/19 4/12/19 4/13/19 14:59 22:59 06:59 Intake Total 0 ml 1050 ml 290 ml Balance 0 ml 1050 ml 290 ml VENANCIO RIVAS MD Oct 13, 2018 09:26
[2018-10-13] MEDS: POTASSIUM CL 20MEQ-0.45% NACL 1,000 ML IV SCH (12:23)
[2018-10-13] MEDS: oxyCODONE/APAP 5/325 1 TAB TABLET PO PRN ×2 (12:24→18:41)
[2018-10-13] MEDS: hydrALAZINE 20 MG/ML VIAL. IVP PRN (16:54)
[2018-10-13] MEDS ORDERED: LISI-130 PO (17:54)
[2018-10-13] MEDS ORDERED: METO-239 PO (17:54)
[2018-10-13] MEDS ORDERED: LEVO75TA PO (17:54)
--- NOTE | 2018-10-13 17:54 | NUR ---
This nurse verified home medications with preferred pharmacy, and also paged MD to restart home medications.
[2018-10-14 03:36] VITALS: BP 132/86
[2018-10-14] MEDS: oxyCODONE/APAP 5/325 1 TAB TABLET PO PRN ×3 (05:00→23:09)
[2018-10-14] MEDS: POTASSIUM CL 20MEQ-0.45% NACL 1,000 ML IV SCH (05:03)
[2018-10-14] MEDS: PANTOPRAZOLE IV PUSH 40 MG VIAL. IVP SCH (06:58)
[2018-10-14] MEDS: LEVOTHYROXINE 75 MCG TABLET PO SCH (06:58)
[2018-10-14 07:00] VITALS: BP 141/85
[2018-10-14] MEDS: ENOXAPARIN 40 MG/0.4 ML SYRINGE. SQ SCH ×2 (08:38→20:11)
[2018-10-14] MEDS: LISINOPRIL 20 MG TABLET PO SCH (08:39)
[2018-10-14] MEDS: METOPROLOL SUCC 24HR ER 25 MG TAB.ER.24H. PO SCH (08:39)
--- NOTE | 2018-10-14 09:51 | PDOC ---
SURGICAL PROGRESS NOTE Subjective would like more to eat Vital Signs Vital Signs Date Time Temp Pulse Resp B/P (MAP) Pulse Ox O2 Delivery O2 Flow Rate FiO2 10/14/18 08:39 77 141/85 10/14/18 08:30 Room Air 10/14/18 07:00 97.8 18 98 97.8 I&O Intake and Output 10/14/18 07:00 Intake Total 855 ml Balance 855 ml Intake Oral 855 ml # Voids 7 PATIENT HAS A BELCHER: No General: Alert, No acute distress Abdomen: Soft, Other (incision c/d) Problem List Problems Medical Problems: (1) Incarcerated ventral hernia Status: Acute (2) Small bowel obstruction Status: Acute Assessment/Plan POD 4 SBR , primary repair umbilical hernia advance diet MEREDITH WILKINSON MD Oct 14, 2018 09:51
--- NOTE | 2018-10-14 10:17 | PDOC ---
PROGRESS NOTES Chief Complaint Chief Complaint POD#4 SBR, umbo hernia repair - 10/10/18 obesity BMI 42.3 History of Present Illness History of Present Illness NG-tube out UPGraded to full liquid diet today by GS AMbulating SHe is eager to go home on Monday Plan: FULL Liquid diet today If tolerates well , plans of home Monday per gS Vitals Vitals Vital Signs Date Time Temp Pulse Resp B/P (MAP) Pulse Ox O2 Delivery O2 Flow Rate FiO2 10/14/18 08:39 77 141/85 10/14/18 08:30 Room Air 10/14/18 07:00 97.8 18 98 97.8 Physical Exam General: Alert, No acute distress Heart: Regular rate, Normal S1, Normal S2 Lungs: Clear Abdomen: Soft, Other (incision c/d) Extremities: No clubbing, No cyanosis Skin: Other (warm, dry) Review of Systems Review of Systems Some nausea but the rest of ROS 14 point negative Assessment and Plan Assessmemt and Plan Problems Medical Problems: (1) Incarcerated ventral hernia Status: Acute (2) Small bowel obstruction Status: Acute Comment Review of Relevant I have reviewed the following items brendon (where applicable) has been applied. Labs Microbiology 10/10/18 Anaerobic/Aerobic Culture, Resulted Pending 10/10/18 Anaerobic Culture Result 1 (ALISHA), Resulted Pending 10/10/18 Aerobic Culture - Final, Resulted 10/10/18 Aerobic Culture Result 1 (ALISHA) - Final, Resulted 10/10/18 Gram Stain - Final, Resulted 10/10/18 Gram Stain Result 1 (ALISHA) - Final, Resulted 10/10/18 Gram Stain Result 2 (ALISHA) - Final, Resulted Medications Current Medications Sodium Chloride 1,000 ml @ 1,000 mls/hr 1X ONCE IV Last administered on at 23:07; Start 10/09/18 at 23:00; Stop 10/09/18 at 23:59; Status DC Ondansetron HCl (Zofran) 8 mg 1X ONCE IV Last administered on 10/09/18at 23:28; Start 10/09/18 at 23:00; Stop 10/09/18 at 23:01; Status DC Fentanyl Citrate (Fentanyl 2ml Vial) 50 mcg 1X ONCE IV Last administered on 10/09/18at 23:28; Start 10/09/18 at 23:15; Stop 10/09/18 at 23:16; Status DC Iohexol (Omnipaque 300 Mg/ml) 75 ml 1X ONCE IV Last administered on 10/10/18at 01:31; Start 10/10/18 at 01:30; Stop 10/10/18 at 01:49; Status DC Info (CONTRAST GIVEN -- Rx MONITORING) 1 each PRN DAILY PRN MC SEE COMMENTS; Start 10/10/18 at 01:45; Stop 10/12/18 at 01:44; Status DC Ondansetron HCl (Zofran) 4 mg 1X ONCE IV Last administered on 10/10/18at 02:15 ; Start 10/10/18 at 02:15; Stop 10/10/18 at 02:16; Status DC Ondansetron HCl (Zofran) 4 mg PRN Q8HRS PRN IV NAUSEA/VOMITING; Start 10/10/18 at 02:30; Stop 10/10/18 at 12:06; Status DC Fentanyl Citrate (Fentanyl 2ml Vial) 50 mcg PRN Q1HR PRN IV PAIN; Start at 02:30; Stop 10/10/18 at 12:07; Status DC Sodium Chloride 1,000 ml @ 125 mls/hr Q8H IV ; Start 10/10/18 at 02:30; Stop at 09:47; Status DC Benzocaine (Hurricaine One) 1 spray 1X ONCE MM ; Start 10/10/18 at 03:45; Stop 10/10/18 at 03:46; Status DC Metronidazole 100 ml @ 100 mls/hr 1X ONCE IV Last administered on 10/10/18at 04:30; Start 10/10/18 at 03:45; Stop 10/10/18 at 04:44; Status DC Fentanyl Citrate (Fentanyl 5ml Vial) 250 mcg STK-MED ONCE .ROUTE ; Start at 04:03; Stop 10/10/18 at 04:04; Status DC Succinylcholine Chloride (Anectine) 200 mg STK-MED ONCE .ROUTE ; Start 10/10/18 at 04:04; Stop 10/10/18 at 04:05; Status DC Rocuronium Keaton (Zemuron) 50 mg STK-MED ONCE .ROUTE ; Start 10/10/18 at 04:04 ; Stop 10/10/18 at 04:05; Status DC Isoflurane (Isoflurane) 60 ml STK-MED ONCE IH ; Start 10/10/18 at 04:06; Stop at 04:07; Status DC Dexamethasone Sodium Phosphate (Decadron) 20 mg STK-MED ONCE .ROUTE ; Start 04/20 at 04:06; Stop 10/10/18 at 04:07; Status DC Lidocaine HCl (Lidocaine Pf 2% Vial) 5 ml STK-MED ONCE .ROUTE ; Start 10/10/18 at 04:06; Stop 10/10/18 at 04:07; Status DC Ondansetron HCl (Zofran) 4 mg STK-MED ONCE .ROUTE ; Start 10/10/18 at 04:06; Stop 10/10/18 at 04:07; Status DC Propofol 20 ml @ As Directed STK-MED ONCE IV ; Start 10/10/18 at 04:06; Stop 04/20 at 04:07; Status DC Ringer's Solution 1,000 ml @ 100 mls/hr Q10H IV Last administered on at 06:52; Start 10/10/18 at 04:15; Stop 10/10/18 at 09:47; Status DC Famotidine (Pepcid Vial) 20 mg STK-MED ONCE .ROUTE ; Start 10/10/18 at 04:13; Stop 10/10/18 at 04:14; Status DC Bupivacaine HCl/ Epinephrine Bitart (Sensorcain-Mpf Epi 0.5%-[id number]) 30 ml STK -MED ONCE .ROUTE Last administered on 10/10/18at 04:57; Start 10/10/18 at 03:13 ; Stop 10/10/18 at 04:13; Status DC Metoprolol Tartrate (Lopressor Vial) 5 mg STK-MED ONCE IVP ; Start 10/10/18 at 04:28; Stop 10/10/18 at 04:29; Status DC Ondansetron HCl (Zofran) 4 mg PRN Q6HRS PRN IV NAUSEA/VOMITING; Start 10/10/18 at 05:15; Stop 10/11/18 at 05:14; Status DC Fentanyl Citrate (Fentanyl 2ml Vial) 25 mcg PRN Q5MIN PRN IV MILD PAIN; Start 10/10/18 at 05:15; Stop 10/11/18 at 05:14; Status DC Fentanyl Citrate (Fentanyl 2ml Vial) 50 mcg PRN Q5MIN PRN IV MODERATE TO SEVERE PAIN Last administered on 10/10/18at 07:35; Start 10/10/18 at 05:15; Stop 10/11/18 at 05:14; Status DC Morphine Sulfate (Morphine Sulfate) 1 mg PRN Q10MIN PRN IV SEVERE PAIN Last administered on 10/10/18at 07:22; Start 10/10/18 at 05:15; Stop 10/11/18 at 05:14 ; Status DC Ringer's Solution 1,000 ml @ 30 mls/hr Q24H IV Last administered on 10/10/18at 05:15; Start 10/10/18 at 05:15; Stop 10/10/18 at 05:17; Status DC Lidocaine HCl (Xylocaine-Mpf 1% 2ml Vial) 2 ml PRN 1X PRN ID PRIOR TO IV START ; Start 10/10/18 at 05:15; Stop 10/11/18 at 05:14; Status DC Hydromorphone HCl (Dilaudid) 0.5 mg PRN Q10MIN PRN IV SEV PAIN, Second choice Last administered on 10/10/18at 07:59; Start 10/10/18 at 05:15; Stop 10/11/18 at 05:14; Status DC Prochlorperazine Edisylate (Compazine) 5 mg PACU PRN PRN IV NAUSEA, MRX1 Last administered on 10/10/18at 07:49; Start 10/10/18 at 05:15; Stop 10/11/18 at 05:14 ; Status DC Glycopyrrolate (Robinul) 1 mg STK-MED ONCE .ROUTE ; Start 10/10/18 at 05:28; Stop 10/10/18 at 05:29; Status DC Neostigmine Methylsulfate (Neostigmine Methylsulfate) 5 mg STK-MED ONCE .ROUTE ; Start 10/10/18 at 05:29; Stop 10/10/18 at 05:30; Status DC Enoxaparin Sodium (Lovenox 40mg Syringe) 40 mg Q24H SQ ; Start 10/10/18 at 09:00 ; Stop 10/10/18 at 09:45; Status DC Sodium Chloride (Normal Saline Flush) 3 ml QSHIFT PRN IV AFTER MEDS AND BLOOD DRAWS; Start 10/10/18 at 06:30 Potassium Chloride/Sodium Chloride 1,000 ml @ 60 mls/hr [id number] IV Last administered on 10/14/18at 05:03; Start 10/10/18 at 06:30 Hydromorphone HCl 30 ml @ 0 mls/hr CONT PRN PRN IV PER PROTOCOL Last administered on 10/11/18at 23:12; Start 10/10/18 at 06:30; Stop 10/13/18 at 08:20 ; Status DC Ondansetron HCl (Zofran) 4 mg PRN Q6HRS PRN IV NAUESA, 1ST CHOICE Last administered on 10/12/18at 18:32; Start 10/10/18 at 06:30 Throat Lozenges (Chloraseptic) 1 spray PRN Q2HR PRN PO SORE THROAT, 2ND CHOICE Last administered on 10/11/18at 00:08; Start 10/10/18 at 06:30 Throat Lozenges (Cepacol Sore Throat Lozenge) 1 coleman PRN Q2HRS PRN PO SORE THROAT, 1ST CHOICE; Start 10/10/18 at 06:30 Hydralazine HCl (Apresoline Inj) 20 mg STK-MED ONCE .ROUTE ; Start 10/10/18 at 08:01; Stop 10/10/18 at 08:02; Status DC Hydralazine HCl (Apresoline Inj) 10 mg 1X ONCE IVP Last administered on at 08:05; Start 10/10/18 at 08:02; Stop 10/10/18 at 08:25; Status DC Hydralazine HCl (Apresoline Inj) 10 mg PRN Q4HRS PRN IVP ELEVATED BP, SEE COMMENTS Last administered on 10/13/18at 16:54; Start 10/10/18 at 08:15 Enoxaparin Sodium (Lovenox 40mg Syringe) 40 mg Q24H SQ Last administered on 05/21at 21:05; Start 10/10/18 at 21:00; Stop 10/12/18 at 12:38; Status DC Throat Lozenges (Chloraseptic) 1 spray PRN Q2HR PRN PO SORE THROAT; Start 10/10 at 23:00; Stop 10/11/18 at 16:48; Status DC Pantoprazole Sodium (PROTONIX VIAL for IV PUSH) 40 mg DAILYAC IVP Last administered on 10/14/18at 06:58; Start 10/12/18 at 07:30 Pantoprazole Sodium (PROTONIX VIAL for IV PUSH) 40 mg 1X ONCE IVP Last administered on 10/11/18at 10:11; Start 10/11/18 at 09:30; Stop 10/11/18 at 09:31 ; Status DC Enoxaparin Sodium (Lovenox 40mg Syringe) 40 mg Q12HR SQ Last administered on at 08:38; Start 10/12/18 at 21:00 Hydromorphone HCl (Dilaudid) 0.4 mg PRN Q4HRS PRN IVP PAIN SEVERE; Start at 08:30 Oxycodone/ Acetaminophen (Percocet 5/325) 1 tab PRN Q4HRS PRN PO PAIN MILD TO MOD Last administered on 10/14/18at 05:00; Start 10/13/18 at 08:30 Oxycodone/ Acetaminophen (Percocet 10/325) 1 tab PRN Q4HRS PRN PO pain SEVERE; Start 10/13/18 at 08:30 Levothyroxine Sodium (Synthroid) 75 mcg DAILY06 PO Last administered on at 06:58; Start 10/14/18 at 06:00 Lisinopril (Prinivil) 40 mg DAILY PO Last administered on 10/14/18at 08:39; Start 10/14/18 at 09:00 Metoprolol Succinate (Toprol Xl) 50 mg DAILY PO Last administered on 10/14/18at 08:39; Start 10/14/18 at 09:00 Active Scripts Active Reported Lisinopril 40 Mg Tablet 40 Mg PO DAILY Metoprolol Succinate ( Xl ) (Metoprolol Succinate) 25 Mg Tab.er.24h 50 Mg PO DAILY Synthroid (Levothyroxine Sodium) 75 Mcg Tablet 1 Tab PO DAILY Vitals/I & O Vital Sign - Last 24 Hours 10/13/18 10/13/18 10/13/18 10/13/18 11:00 12:24 13:25 15:00 Temp 98.0 98.3 98.0 98.3 Pulse 85 80 Resp 17 18 B/P (MAP) 157/99 (118) 152/96 (114) Pulse Ox 98 98 98 99 O2 Delivery Room Air Room Air Room Air Room Air 10/13/18 10/13/18 10/13/18 10/13/18 16:54 18:00 18:41 19:58 Temp 98.8 98.8 Pulse 80 96 90 Resp 18 B/P (MAP) 152/96 123/75 (91) 126/88 (101) Pulse Ox 99 97 O2 Delivery Room Air Room Air 10/13/18 10/13/18 10/14/18 10/14/18 20:00 23:12 03:36 07:00 Temp 98.3 98.1 97.8 98.3 98.1 97.8 Pulse 80 79 77 Resp 18 18 18 B/P (MAP) 130/88 (102) 132/86 (101) 141/85 (103) Pulse Ox 98 98 98 O2 Delivery Room Air Room Air Room Air Room Air 10/14/18 10/14/18 10/14/18 08:30 08:39 08:39 Pulse 77 77 B/P (MAP) 141/85 141/85 O2 Delivery Room Air Intake and Output 10/13/18 10/13/18 10/14/18 15:00 23:00 07:00 Intake Total 240 ml 75 ml 540 ml Balance 240 ml 75 ml 540 ml VENANCIO RIVAS MD Oct 14, 2018 10:17
[2018-10-14 11:00] VITALS: BP 131/94
[2018-10-14 15:00] VITALS: BP 138/95
[2018-10-14 19:00] VITALS: BP 156/106
[2018-10-14] MEDS: hydrALAZINE 20 MG/ML VIAL. IVP PRN (20:07)
[2018-10-14 23:00] VITALS: BP 137/87
[2018-10-15 03:00] VITALS: BP 133/99
[2018-10-15 06:04] LABS: BASO # 0.1 x10^3/uL (0.0-0.2); BASO % 1 % (0-3); EOS # 0.3 x10^3/uL (0.0-0.7); EOS % 3 % (0-3); HEMATOCRIT 39.8 % (36.0-47.0); HEMOGLOBIN 13.5 g/dL (12.0-15.5); LYMPH # 1.4 x10^3/uL (1.0-4.8); LYMPH % 15 % (24-48); MEAN CORPUSCULAR HEMOGLOBIN 32 pg (25-35); MEAN CORPUSCULAR HGB CONC 34 g/dL (31-37); MEAN CORPUSCULAR VOLUME 94 fL (79-100); MONO % 11 % (0-9); NEUT # 6.5 x10^3uL (1.8-7.7); NEUT % 71 % (31-73); PLATELET COUNT 403 x10^3/uL (140-400); RED BLOOD COUNT 4.26 x10^6/uL (3.50-5.40); RED CELL DISTRIBUTION WIDTH 14.1 % (11.5-14.5); WHITE BLOOD COUNT 9.2 x10^3/uL (4.0-11.0)
[2018-10-15] MEDS: LEVOTHYROXINE 75 MCG TABLET PO SCH (06:05)
[2018-10-15] MEDS: oxyCODONE/APAP 5/325 1 TAB TABLET PO PRN ×2 (06:05→12:57)
[2018-10-15 06:18] LABS: CALCIUM 8.7 mg/dL (8.5-10.1); CREATININE 0.7 mg/dL (0.6-1.0); GFR 94.7; POTASSIUM 4.4 mmol/L (3.5-5.1)
[2018-10-15 07:00] VITALS: BP 132/92
[2018-10-15] MEDS ORDERED: PANTOPRAZOLE 40 MG TABLET.DR. PO SCH (07:30)
--- NOTE | 2018-10-15 08:49 | PDOC ---
MARGARET BOWLING [employer]ING CLE[employer]ER 10/15/18 0849: SURGICAL PROGRESS NOTE Subjective Tolerating diet ambulating pain managed Vital Signs Vital Signs Date Time Temp Pulse Resp B/P (MAP) Pulse Ox O2 Delivery O2 Flow Rate FiO2 10/15/18 07:05 16 Room Air 10/15/18 07:00 98.3 83 132/92 (105) 96 98.3 I&O Intake and Output 10/15/18 07:00 Intake Total 540 ml Balance 540 ml Intake Oral 540 ml # Voids 3 General: Alert, Oriented X3, Cooperative, No acute distress Abdomen: Soft, Other (ND, incision c/d/i, no erythema) Labs Laboratory Tests Test 10/15/18 05:45 White Blood Count 9.2 x10^3/uL (4.0-11.0) Red Blood Count 4.26 x10^6/uL (3.50-5.40) Hemoglobin 13.5 g/dL (12.0-15.5) Hematocrit 39.8 % (36.0-47.0) Mean Corpuscular Volume 94 fL (79-100) Mean Corpuscular Hemoglobin 32 pg (25-35) Mean Corpuscular Hemoglobin Concent 34 g/dL (31-37) Red Cell Distribution Width 14.1 % (11.5-14.5) Platelet Count 403 x10^3/uL (140-400) Neutrophils (%) (Auto) 71 % (31-73) Lymphocytes (%) (Auto) 15 % (24-48) Monocytes (%) (Auto) 11 % (0-9) Eosinophils (%) (Auto) 3 % (0-3) Basophils (%) (Auto) 1 % (0-3) Neutrophils # (Auto) 6.5 x10^3uL (1.8-7.7) Lymphocytes # (Auto) 1.4 x10^3/uL (1.0-4.8) Monocytes # (Auto) 1.0 x10^3/uL (0.0-1.1) Eosinophils # (Auto) 0.3 x10^3/uL (0.0-0.7) Basophils # (Auto) 0.1 x10^3/uL (0.0-0.2) Sodium Level 141 mmol/L (136-145) Potassium Level 4.4 mmol/L (3.5-5.1) Chloride Level 103 mmol/L (98-107) Carbon Dioxide Level 29 mmol/L (21-32) Anion Gap 9 (6-14) Blood Urea Nitrogen 8 mg/dL (7-20) Creatinine 0.7 mg/dL (0.6-1.0) Estimated GFR (Cockcroft-Gault) 94.7 Glucose Level 96 mg/dL (70-99) Calcium Level 8.7 mg/dL (8.5-10.1) Laboratory Tests Test 10/15/18 05:45 White Blood Count 9.2 x10^3/uL (4.0-11.0) Red Blood Count 4.26 x10^6/uL (3.50-5.40) Hemoglobin 13.5 g/dL (12.0-15.5) Hematocrit 39.8 % (36.0-47.0) Mean Corpuscular Volume 94 fL (79-100) Mean Corpuscular Hemoglobin 32 pg (25-35) Mean Corpuscular Hemoglobin Concent 34 g/dL (31-37) Red Cell Distribution Width 14.1 % (11.5-14.5) Platelet Count 403 x10^3/uL (140-400) Neutrophils (%) (Auto) 71 % (31-73) Lymphocytes (%) (Auto) 15 % (24-48) Monocytes (%) (Auto) 11 % (0-9) Eosinophils (%) (Auto) 3 % (0-3) Basophils (%) (Auto) 1 % (0-3) Neutrophils # (Auto) 6.5 x10^3uL (1.8-7.7) Lymphocytes # (Auto) 1.4 x10^3/uL (1.0-4.8) Monocytes # (Auto) 1.0 x10^3/uL (0.0-1.1) Eosinophils # (Auto) 0.3 x10^3/uL (0.0-0.7) Basophils # (Auto) 0.1 x10^3/uL (0.0-0.2) Sodium Level 141 mmol/L (136-145) Potassium Level 4.4 mmol/L (3.5-5.1) Chloride Level 103 mmol/L (98-107) Carbon Dioxide Level 29 mmol/L (21-32) Anion Gap 9 (6-14) Blood Urea Nitrogen 8 mg/dL (7-20) Creatinine 0.7 mg/dL (0.6-1.0) Estimated GFR (Cockcroft-Gault) 94.7 Glucose Level 96 mg/dL (70-99) Calcium Level 8.7 mg/dL (8.5-10.1) Problem List Problems Medical Problems: (1) Incarcerated ventral hernia Status: Acute (2) Small bowel obstruction Status: Acute Assessment/Plan ok to dc home FU next week in office with Dr Wilkinson script on chart MEREDITH WILKINSON MD 10/15/18 1218: SURGICAL PROGRESS NOTE Assessment/Plan pt seen home today follow up next week MARGARET BOW[employer]ING [employer]ER Oct 15, 2018 08:49 MEREDITH WILKINSON MD Oct 15, 2018 12:18
[2018-10-15] MEDS: METOPROLOL SUCC 24HR ER 25 MG TAB.ER.24H. PO SCH (09:05)
[2018-10-15] MEDS: ENOXAPARIN 40 MG/0.4 ML SYRINGE. SQ SCH (09:06)
[2018-10-15] MEDS: LISINOPRIL 20 MG TABLET PO SCH (09:06)
[2018-10-15] MEDS ORDERED: OXYC1TAB15 PO (10:11)
[2018-10-15 11:00] VITALS: BP 150/106
--- NOTE | 2018-10-15 11:32 | NUR ---
SW following for discharge planning. Discussed with RN, pt is discharging home today with self care, No SW needs.
--- NOTE | 2018-10-15 11:37 | PDOC3 ---
Discharge Summary Visit Information Date of Admission: Oct 10, 2018 Date of Discharge: Oct 15, 2018 Final Diagnosis Problems Medical Problems: (1) Incarcerated ventral hernia Status: Acute (2) Small bowel obstruction Status: Acute Brief Hospital Course Allergies Allergies Coded Allergies Type Severity Reaction Last Updated Verified Penicillins Allergy Intermediate Hives 10/13/18 No Vital Signs Vital Signs Date Time Temp Pulse Resp B/P (MAP) Pulse Ox O2 Delivery O2 Flow Rate FiO2 10/15/18 09:06 83 132/92 10/15/18 08:00 Room Air 10/15/18 07:05 16 10/15/18 07:00 98.3 96 98.3 Lab Results Laboratory Tests Test 10/15/18 05:45 White Blood Count 9.2 x10^3/uL (4.0-11.0) Red Blood Count 4.26 x10^6/uL (3.50-5.40) Hemoglobin 13.5 g/dL (12.0-15.5) Hematocrit 39.8 % (36.0-47.0) Mean Corpuscular Volume 94 fL (79-100) Mean Corpuscular Hemoglobin 32 pg (25-35) Mean Corpuscular Hemoglobin Concent 34 g/dL (31-37) Red Cell Distribution Width 14.1 % (11.5-14.5) Platelet Count 403 x10^3/uL (140-400) Neutrophils (%) (Auto) 71 % (31-73) Lymphocytes (%) (Auto) 15 % (24-48) Monocytes (%) (Auto) 11 % (0-9) Eosinophils (%) (Auto) 3 % (0-3) Basophils (%) (Auto) 1 % (0-3) Neutrophils # (Auto) 6.5 x10^3uL (1.8-7.7) Lymphocytes # (Auto) 1.4 x10^3/uL (1.0-4.8) Monocytes # (Auto) 1.0 x10^3/uL (0.0-1.1) Eosinophils # (Auto) 0.3 x10^3/uL (0.0-0.7) Basophils # (Auto) 0.1 x10^3/uL (0.0-0.2) Sodium Level 141 mmol/L (136-145) Potassium Level 4.4 mmol/L (3.5-5.1) Chloride Level 103 mmol/L (98-107) Carbon Dioxide Level 29 mmol/L (21-32) Anion Gap 9 (6-14) Blood Urea Nitrogen 8 mg/dL (7-20) Creatinine 0.7 mg/dL (0.6-1.0) Estimated GFR (Cockcroft-Gault) 94.7 Glucose Level 96 mg/dL (70-99) Calcium Level 8.7 mg/dL (8.5-10.1) Laboratory Tests Test 10/15/18 05:45 White Blood Count 9.2 x10^3/uL (4.0-11.0) Red Blood Count 4.26 x10^6/uL (3.50-5.40) Hemoglobin 13.5 g/dL (12.0-15.5) Hematocrit 39.8 % (36.0-47.0) Mean Corpuscular Volume 94 fL (79-100) Mean Corpuscular Hemoglobin 32 pg (25-35) Mean Corpuscular Hemoglobin Concent 34 g/dL (31-37) Red Cell Distribution Width 14.1 % (11.5-14.5) Platelet Count 403 x10^3/uL (140-400) Neutrophils (%) (Auto) 71 % (31-73) Lymphocytes (%) (Auto) 15 % (24-48) Monocytes (%) (Auto) 11 % (0-9) Eosinophils (%) (Auto) 3 % (0-3) Basophils (%) (Auto) 1 % (0-3) Neutrophils # (Auto) 6.5 x10^3uL (1.8-7.7) Lymphocytes # (Auto) 1.4 x10^3/uL (1.0-4.8) Monocytes # (Auto) 1.0 x10^3/uL (0.0-1.1) Eosinophils # (Auto) 0.3 x10^3/uL (0.0-0.7) Basophils # (Auto) 0.1 x10^3/uL (0.0-0.2) Sodium Level 141 mmol/L (136-145) Potassium Level 4.4 mmol/L (3.5-5.1) Chloride Level 103 mmol/L (98-107) Carbon Dioxide Level 29 mmol/L (21-32) Anion Gap 9 (6-14) Blood Urea Nitrogen 8 mg/dL (7-20) Creatinine 0.7 mg/dL (0.6-1.0) Estimated GFR (Cockcroft-Gault) 94.7 Glucose Level 96 mg/dL (70-99) Calcium Level 8.7 mg/dL (8.5-10.1) Brief Hospital Course 38 yo obese female with increasing pain around a palpable fullness in her periumbilical area. CT shows SBO 2/2 incarcerated ventral hernia. hospitalist admitted for further eval. gen sx consulted and s/p small bowel resection and umbo hernia repair - 10/10/18. patient tolerated procedure well. after several days patient was able to tolerate diet and pain improved at discharge. will follow up with sx in 1 week as outpatient. patient given pain scripts at discharge. daughter will pick patient up today and patient will be discharged home. Discharge Information Condition at Discharge: Improved Follow Up: Weeks Disposition/Orders: D/C to Home Scheduled Levothyroxine Sodium (Synthroid) 75 Mcg Tablet, 1 TAB PO DAILY for thyroid, #30 Ref 5 (Reported) Entered as Reported by: BLANKA HINES on 10/13/181753 Last Taken: Unknown Dose on Unknown Date & Time Last Action: Continued on 10/13/181802 by BLANKA HINES Lisinopril (Lisinopril) 40 Mg Tablet, 40 MG PO DAILY for FOR HYPERTENSION, #30 Ref 0 (Reported) Entered as Reported by: BLANKA HINES on 10/13/181753 Last Taken: Unknown Dose on Unknown Date & Time Last Action: Continued on 10/13/181802 by BLANKA HINES Metoprolol Succinate (Metoprolol Succinate ( Xl )) 25 Mg Tab.er.24h, 50 MG PO DAILY for FOR HYPERTENSION, #30 Ref 0 (Reported) Entered as Reported by: BLANKA HINES on 10/13/181753 Last Taken: Unknown Dose on Unknown Date & Time Last Action: Continued on 10/13/181802 by BLANKA HINES Scheduled PRN Oxycodone/Apap 5-325 (Percocet 5-325 Mg Tablet ) 1 Each Tablet, 1 TAB PO PRN Q4HRS PRN for PAIN MILD TO MOD for 5 Days, #30 Prescribed by: SYD CASIANO MD on 10/15/18 1011 SYD CASIANO MD Oct 15, 2018 11:37
--- NOTE | 2018-10-15 12:55 | NUR ---
Discharge orders placed. Discharge instructions/medications discussed with pt. Explained pt will need to fill Rx for Percocet 5/325 #30 for pain relief tonight. Pt voiced understanding. Discussed f/u appt with Dr. Baltazar x 1 week. Pt voiced understanding. Discussed s/s infection with pt explaining if any signs are showing the need to call Dr. Baltazar's office STAT. Pt voiced understanding. IV removed without complications. Pt given a pain pill before discharge. Pt walked out to hospital exit with JONE Barker and family members without complications.
== END 2018-10-15 12:55 | disposition home or self-care (01) | DRG 330 ==
LOC: ER 22:03 → 4 NORTH 10-10 02:30
PROVIDERS: ADMIT Surgery; ATTEND Surgery
PROC: 0DB80ZZ Excision of Small Intestine, Open Approach (ICD-10-PCS; 2018-10-10)
PROC: 0WQF0ZZ Repair Abdominal Wall, Open Approach (ICD-10-PCS; principal; 2018-10-10 04:30)
DX: K42.0 Umbilical hernia with obstruction, without gangrene (principal); K55.9 Vascular disorder of intestine, unspecified; R18.8 Other ascites; R65.10 Systemic inflammatory response syndrome (SIRS) of non-infectious origin without acute organ dysfunction; Z68.41 Body mass index [BMI] 40.0-44.9, adult; K80.20 Calculus of gallbladder without cholecystitis without obstruction; E03.9 Hypothyroidism, unspecified; E66.01 Morbid (severe) obesity due to excess calories; I10 Essential (primary) hypertension; K21.9 Gastro-esophageal reflux disease without esophagitis; F17.210 Nicotine dependence, cigarettes, uncomplicated; Z88.0 Allergy status to penicillin; Z79.899 Other long term (current) drug therapy
CPT/HCPCS: 36415; 74018; 74177; 80048; 80053; 83690; 84439; 85007; 85025; 87071; 87075; 87186; 87491; 87591; 88307; 96361; 96374; 96375; A7015; C9113; J0330; J0360; J0780; J1100; J1170; J1650; J2001; J2270; J2405; J2704; J2710; J3010; J3490; J7030; J7120; Q9967; 99285-25

== ENCOUNTER → 2019-05-03 | Outpatient (CLI) | payer BC ==
[~2019-05-03] MED LIST: CONTRAST GIVEN. MC PRN; FEXO1TAB31 PO; IOHEXOL 240 MG/ML 50ML VIAL. PO ONE; IOHEXOL 300 MG/ML 100ML VIAL. IV ONE; LEVO75TA PO; LISI-130 PO; METO-239 PO; OXYC1TAB15 PO
--- NOTE | 2019-05-03 11:27 | RAD ---
CT ABD PELV W/ IV CONTRST ONLY Indication: Abdominal fullness and discomfort, hernia Technique: Postcontrast CT imaging was performed of the abdomen pelvis, multiplanar reconstruction images submitted. Oral contrast was also given. One or more of the following individualized dose reduction techniques were utilized for this examination: 1. Automated exposure control 2. Adjustment of the mA and/or kV according to patient size 3. Use of iterative reconstruction technique. Comparison: October 10, 2018 Findings: There is again cholelithiasis. No new abnormality is identified liver, spleen, pancreas. Both kidneys enhance, no hydronephrosis. There is no adrenal nodularity. Bowel is not significantly dilated. Previously seen free fluid has resolved, no free fluid or free air on this exam. There has been ventral hernia repair, although outward bowing of the fascia centrally at the site of repair with underlying, nondilated small bowel greater on the right. Small bowel and fat protrude anterior to the plane of the ventral musculature. Normal caliber appendix is visualized. There is degenerative disc disease greatest L3-4 and L4-5. IMPRESSION: 1. There has been interval ventral hernia repair although outward bowing of the fascia more centrally and segment of nondilated small bowel and fat protruding anterior to the plane of the musculature. 2. There is cholelithiasis. Electronically signed by: Jeison Ellsworth MD (05/03/2019 11:24 AM) [id number]
== END | disposition home or self-care (01) ==
LOC: CT 08:17
PROVIDERS: ATTEND Surgery
DX: K80.20 Calculus of gallbladder without cholecystitis without obstruction (principal); M51.36 Other intervertebral disc degeneration, lumbar region; I10 Essential (primary) hypertension; F17.200 Nicotine dependence, unspecified, uncomplicated; Z88.0 Allergy status to penicillin
CPT/HCPCS: 74177; Q9966; Q9967

== ENCOUNTER → 2019-05-17 | Outpatient (CLI) | payer BC ==
[~2019-05-17] MED LIST changes: -CONTRAST GIVEN. MC PRN; +DOCU-153 PO; -IOHEXOL 240 MG/ML 50ML VIAL. PO ONE; -IOHEXOL 300 MG/ML 100ML VIAL. IV ONE; +TRAM50TA PO
[2019-05-17 11:40] LABS: BASO # 0.1 x10^3/uL (0.0-0.2); BASO % 1 % (0-3); EOS # 0.2 x10^3/uL (0.0-0.7); EOS % 3 % (0-3); HEMOGLOBIN 14.7 g/dL (12.0-15.5); LYMPH # 1.7 x10^3/uL (1.0-4.8); LYMPH % 25 % (24-48); MEAN CORPUSCULAR HEMOGLOBIN 33 pg (25-35); MEAN CORPUSCULAR HGB CONC 35 g/dL (31-37); MEAN CORPUSCULAR VOLUME 94 fL (79-100); MONO # 0.7 x10^3/uL (0.0-1.1); MONO % 10 % (0-9); NEUT # 4.4 x10^3/uL (1.8-7.7); NEUT % 62 % (31-73); PLATELET COUNT 411 x10^3/uL (140-400); RED BLOOD COUNT 4.47 x10^6/uL (3.50-5.40); WHITE BLOOD COUNT 7.1 x10^3/uL (4.0-11.0)
[2019-05-17 11:49] LABS: ALBUMIN 3.8 g/dL (3.4-5.0); CALCIUM 8.6 mg/dL (8.5-10.1); CREATININE 0.8 mg/dL (0.6-1.0); GFR 80.7; POTASSIUM 4.1 mmol/L (3.5-5.1)
== END | disposition home or self-care (01) ==
LOC: SURGPAT 11:05
PROVIDERS: ATTEND Surgery
DX: Z01.818 Encounter for other preprocedural examination (principal); K43.2 Incisional hernia without obstruction or gangrene; Z88.0 Allergy status to penicillin
CPT/HCPCS: 36415; 80048; 82040; 85025

== ENCOUNTER 2019-05-22 09:26 | Observation (INO) | payer BC ==
[~2019-05-22] VITALS: Ht 180.3 cm; Wt 130.5 kg
[~2019-05-22 09:26] MED LIST changes: +BUPIVACAINE-EPI 0.5%-1:200000 MPF 30 ML VIAL. INJ ONE; -DOCU-153 PO; +GLYCOPYRROLATE 1 MG/5 ML VIAL. ONE; +HYDROmorphone 2 MG/ML VIAL IV PRN; +IV RINGERS,LACTATED 1000ML 1,000 ML IV SCH; +LIDOCAINE 1% PF 2 ML VIAL. ID PRN; +MIDAZOLAM HCL/PF 2 MG/2 ML VIAL. ONE; +MORPHINE SULFATE 2 MG/ML VIAL. IV PRN; +NEOSTIGMINE METHYLSULFATE 5 MG/5 ML SYRINGE. ONE; +ONDANSETRON PF 4 MG/2 ML VIAL. IV PRN; +PROCHLORPERAZINE 10 MG/2 ML VIAL. IV PRN; +ROCURONIUM 50 MG/5 ML VIAL. ONE; +SEVOFLURANE 61 TO 120 MINUTES. IH ONE; -TRAM50TA PO; +fentaNYL PF VIAL 100 MCG/2 ML VIAL IV PRN; +fentaNYL PF VIAL 100 MCG/2 ML VIAL ONE
[2019-05-22] MEDS ORDERED: LIDOCAINE 2% PF 5 ML VIAL. ONE (11:00)
[2019-05-22] MEDS ORDERED: ONDANSETRON PF 4 MG/2 ML VIAL. ONE (11:00)
[2019-05-22] MEDS ORDERED: PROPOFOL 20 ML IV ONE ×2 (11:00→11:29)
[2019-05-22] MEDS ORDERED: KETOROLAC 30 MG/ML VIAL. ONE (11:00)
[2019-05-22] MEDS ORDERED: DEXAMETHASONE SOD PHOS 4 MG/ML VIAL ONE (11:00)
[2019-05-22] MEDS ORDERED: GLYCOPYRROLATE 1 MG/5 ML VIAL. ONE (11:08)
[2019-05-22] MEDS ORDERED: ePHEDrine PF IN SALINE 50 MG/10 ML SYRINGE. IV ONE (11:09)
[2019-05-22] MEDS ORDERED: fentaNYL PF VIAL 100 MCG/2 ML VIAL ONE ×2 (11:36→12:53)
[2019-05-22] MEDS ORDERED: NEOSTIGMINE METHYLSULFATE 5 MG/5 ML SYRINGE. ONE (11:46)
[2019-05-22] MEDS ORDERED: IV NORMAL SALINE 1000ML BAG 1,000 ML IV SCH (12:42)
[2019-05-22] MEDS ORDERED: diphenhydrAMINE HCL 25 MG CAPSULE PO PRN (12:45)
[2019-05-22] MEDS ORDERED: oxyCODONE/APAP 5/325 1 TAB TABLET PO PRN ×2 (12:45)
[2019-05-22] MEDS ORDERED: NALOXONE 0.4 MG/ML VIAL. IV PRN (12:45)
[2019-05-22] MEDS ORDERED: 0.9 % SODIUM CHLORIDE 10 ML DISP.SYRIN. IV PRN (12:45)
[2019-05-22] MEDS ORDERED: ONDANSETRON PF 4 MG/2 ML VIAL. IV PRN (12:45)
[2019-05-22] MEDS: fentaNYL PF VIAL 100 MCG/2 ML VIAL IV PRN ×2 (12:54→13:04)
--- NOTE | 2019-05-22 13:12 | PDOC ---
BRIEF OPERATIVE NOTE Date: May 22, 2019 Pre-Op Diagnosis recurrent ventral incisional hernia Post-Op Diagnosis same Procedure Performed primary repair with Phasix onlay Surgeon Giovanny Adult Day Care Worker Vanessa VERDUZCO Anesthesia Type: General Blood Loss 25cc IV Fluid 1100cc Specimens Obtained hernia sack Findings large diastasis containing omentum and bowel Complications none Operative Note Wk # [id number] MEREDITH WILKINSON MD May 22, 2019 13:12
[2019-05-22 13:35] VITALS: BP 151/90
[2019-05-22] MEDS: POTASSIUM CL 20MEQ-0.45% NACL 1,000 ML IV SCH ×2 (13:56→23:36)
[2019-05-22] MEDS: HYDROmorphone 2 MG/ML VIAL IV PRN ×2 (14:01→21:26)
[2019-05-22 14:10] VITALS: BP 148/80
--- NOTE | 2019-05-22 14:11 | OP ---
DATE OF SURGERY: 05/22/2019 PREOPERATIVE DIAGNOSIS: Recurrent ventral incisional hernia. POSTOPERATIVE DIAGNOSIS: Recurrent ventral incisional hernia.. PROCEDURE: Primary repair with Phasix onlay. SURGEON: Tevin Wilkinson MD MECHANICAL LABORATORY TECHNICIAN: DAX Alexander ANESTHESIA: General endotracheal. ESTIMATED BLOOD LOSS: 25 mL. INTRAVENOUS FLUIDS: 1100 mL. INDICATIONS: The patient is a 39-year-old obese female who previously had an emergent surgery for incarcerated strangulated small bowel and a ventral hernia. She has had recurrence of the hernia since and is here for repair. OPERATIVE FINDINGS: The defect was a large diastasis with a large hernia sac containing bowel and omentum. DESCRIPTION OF PROCEDURE: The patient brought to the operating suite, given a general endotracheal anesthetic and the abdomen prepped and draped in usual sterile fashion. The old midline scar was infiltrated with local anesthetic and excised. We carried dissection down to the large hernia sac. This was visualized circumferentially and carefully opened. Incarcerated contents of omentum were reduced and the sac excised. The obliquely oriented defect was then closed in primary fashion using #1 looped PDS in running fashion, tied in the middle. A Phasix overlay mesh was then placed over the repair and tacked around the periphery with 2-0 PDS sutures. A correct sponge count had been obtained prior to closure of the abdomen. A 19-Ukrainian round Galo drain was brought through an inferolateral stab wound, sewn the skin with a silk stitch and left in the subcutaneous space for postoperative drainage. Cralos was used on the subcutaneous tissue when a second sponge count was correct, the wound was closed with interrupted inverted 3-0 Vicryl in the subcutaneous tissue, a subcuticular 4-0 Monocryl with Xeroform, 4 x 4s and Medipore tape. An abdominal binder was placed. The patient awakened from her anesthetic and taken to the recovery room in satisfactory condition. TEVIN WILKINSON MD DR: LEYDI/nts JOB#: [id number] / [id number]
[2019-05-22 15:40] VITALS: BP 142/85
[2019-05-22 19:00] VITALS: BP 116/65
[2019-05-22] MEDS: DOCUSATE SODIUM 100 MG CAPSULE. PO SCH (21:25)
[2019-05-22] MEDS ORDERED: ENOXAPARIN 40 MG/0.4 ML SYRINGE. SQ SCH (22:00)
[2019-05-22 23:00] VITALS: BP 103/61
[2019-05-23 03:00] VITALS: BP 147/87
[2019-05-23] MEDS ORDERED: LEVOTHYROXINE 75 MCG TABLET PO SCH (06:00)
[2019-05-23 07:00] VITALS: BP 122/70
--- NOTE | 2019-05-23 08:19 | RAD ---
EXAM: ABDOMEN ONE VIEW. HISTORY: Operative instrument count. COMPARISON: None. FINDINGS: A frontal view of the abdomen is obtained. A surgical drain projects within the right lower quadrant and mid abdomen. No unexpected surgical instrument is identified. There are no distended small bowel loops. There is gas distally. IMPRESSION: 1. No evidence of retained surgical instrument. Electronically signed by: Claudio Jain MD (05/23/2019 8:16 AM) [facility]
--- NOTE | 2019-05-23 08:55 | PDOC ---
MARGARET BOWLING APRN 05/23/19 0855: SURGICAL PROGRESS NOTE Subjective ambulating did not sleep well wants to go home today hungry request meds changed to Tramodol Vital Signs Vital Signs Date Time Temp Pulse Resp B/P (MAP) Pulse Ox O2 Delivery O2 Flow Rate FiO2 05/23/19 07:00 97.7 58 18 122/70 (87) 94 Room Air 97.7 05/22/19 12:38 10 I&O Intake and Output 05/23/19 07:00 Intake Total 1400 ml Output Total 47 ml Balance 1353 ml IV Total 1400 ml Output Urine Total 2 ml Estimated Blood Loss 45 ml # Voids 2 General: Alert, Oriented X3, Cooperative Abdomen: Soft, Other (annamarie serosang, binder in place) Labs Laboratory Tests Test 05/22/19 09:48 Bedside Urine HCG, Qualitative Hcg negative (Negative) Laboratory Tests Test 05/22/19 09:48 Bedside Urine HCG, Qualitative Hcg negative (Negative) Assessment/Plan s/p VIH advance diet drain teaching possibly home this afternoon MEREDITH WILKINSON MD 05/23/19 1204: SURGICAL PROGRESS NOTE Assessment/Plan pt seen has her streets on home today follow up Monday MARGARET BOWLING APRN May 23, 2019 08:55 MEREDITH WILKINSON MD May 23, 2019 12:04
[2019-05-23] MEDS ORDERED: TRAM50TA PO (08:57)
[2019-05-23] MEDS ORDERED: DOCU-153 PO (08:57)
[2019-05-23] MEDS ORDERED: LISINOPRIL 20 MG TABLET PO SCH (09:00)
[2019-05-23] MEDS ORDERED: PSEUDOEPHEDRINE ER 120 MG TABLET.ER. PO SCH (09:00)
[2019-05-23] MEDS ORDERED: METOPROLOL SUCC 24HR ER 25 MG TAB.ER.24H. PO SCH (09:00)
[2019-05-23] MEDS ORDERED: traMADol 50 MG TABLET PO PRN (09:00)
[2019-05-23] MEDS ORDERED: NON FORMULARY ITEM (Fexofenadine/Pseudoephedrine (Allegra-D 24 Hour Tablet) 1 TAB) PO SCH (09:00)
[2019-05-23] MEDS ORDERED: CETIRIZINE HCL 10 MG TABLET. PO SCH (09:00)
--- NOTE | 2019-05-23 09:00 | DISCH ---
DISCHARGE INSTRUCTIONS Condition on Discharge Condition on Discharge: Stable Activity After Discharge Activity Instructions for Disc: Activity as tolerated Lifting Instructions after Dis: No heavy lifting Exercise Instruction after Dis: Progress as tolerated Driving Instructions after Dis: Do not drive Weight Bearing Status after Di: As tolerated Diet after Discharge Diet after Discharge: GI Soft Liquid Texture: Thin Liquid Swallowing Supervision: None needed Wound Incision Care Wound/Incision Care: May get incision wet Other wound/incision instructi: wear abdominal binder,ok to remove for showers, drain care as instructed Contacting the [facility] after DC Call your doctor for: Concerns you may have Follow-Up Follow up with: Dr Baltazar 1 week, call to schedule [phone] MARGARET BOWLING APRN May 23, 2019 09:00
[2019-05-23] MEDS: DOCUSATE SODIUM 100 MG CAPSULE. PO SCH (09:05)
[2019-05-23 11:00] VITALS: BP 123/79
--- NOTE | 2019-05-23 11:12 | NUR ---
SW following for discharge planning. Discussed with RN, pt is from home. RN advised no SW needs and anticipates pt is discharging home today with self care.
--- NOTE | 2019-05-23 12:03 | PDOC3 ---
Discharge Summary Visit Information Date of Admission: May 22, 2019 Date of Discharge: May 23, 2019 Admitting Diagnosis Comment: ventral incisional hernia obesity Final Diagnosis same Brief Hospital Course Allergies Allergies Coded Allergies Type Severity Reaction Last Updated Verified Penicillins Allergy Intermediate Hives 05/22/19 No Vital Signs Vital Signs Date Time Temp Pulse Resp B/P (MAP) Pulse Ox O2 Delivery O2 Flow Rate FiO2 05/23/19 11:15 16 Room Air 05/23/19 09:05 58 122/70 05/23/19 07:00 97.7 94 97.7 05/22/19 12:38 10 Lab Results Laboratory Tests Test 05/22/19 09:48 Bedside Urine HCG, Qualitative Hcg negative (Negative) Brief Hospital Course Ms. Colon is a 39 old obese female who presented with ventral incisional hernia. She underwent repair and went home the next day Assessment Assessment ventral incisional hernia Discharge Information Condition at Discharge: Improved Scheduled Docusate Sodium (Dok) 100 Mg Capsule, 100 MG PO BID for constipation, #60 Ref 0 Prescribed by: Danna Yanes on 05/23/19 0857 Fexofenadine/Pseudoephedrine (Padmini-D 24 Hour Tablet) 1 Each Tab.er.24h, 1 TAB PO DAILY for allergeries for 30 Days, #30 Ref 0 (Reported) Entered as Reported by: RAMIRO SELLERS on 05/17/191115 Last Taken: Unknown Dose on 03/22/19 Last Action: Converted on 05/22/191250 by MEREDITH WILKINSON Levothyroxine Sodium (Synthroid) 75 Mcg Tablet, 1 TAB PO DAILY for thyroid, #30 Ref 5 (Reported) Entered as Reported by: BLANKA HINES on 10/13/181753 Last Taken: Unknown Dose on 05/22/19829 Last Action: Continued on 07/22/181250 by MEREDITH WILKINSON Lisinopril (Lisinopril) 40 Mg Tablet, 40 MG PO DAILY for FOR HYPERTENSION, #30 R ef 0 (Reported) Entered as Reported by: BLANKA HINES on 10/13/181753 Last Taken: Unknown Dose on 05/22/19829 Last Action: Continued on 05/22/191250 by MEREDITH WILKINSON Metoprolol Succinate (Metoprolol Succinate ( Xl )) 25 Mg Tab.er.24h, 50 MG PO DAILY for FOR HYPERTENSION, #30 Ref 0 (Reported) Entered as Reported by: BLANKA HINES on 10/13/18 9559 Last Taken: Unknown Dose on 05/22/19829 Last Action: Continued on 05/22/19 1251 by MEREDITH WILKINSON Scheduled PRN Tramadol Hcl (Tramadol Hcl) 50 Mg Tablet, 50 MG PO PRN Q6HRS PRN for PAIN, #30 Ref 0 Prescribed by: Danna Yanes on 05/23/19 0857 MEREDITH WILKINSON MD May 23, 2019 12:03
--- NOTE | 2019-05-23 12:29 | NUR ---
Discharge instructions and belongings reviewed with patient, verbalized understanding. Patient escorted out via wheelchair by Mira JACOBO
--- NOTE | 2019-05-23 18:06 | PATHOLOGY ---
[facility] Accession Number: [id number] . 01 Material submitted: . hernia - HERNIA SAC . 01 Clinical history: . Recurrent ventral hernia . 02 Diagnosis: Segments of fibromembranous and fibroadipose tissue, recurrent ventral hernia repair: - Hernia sac showing reactive fibrosis, congestion and focal recent hemorrhage. 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 02 Electronically signed: . Ochoa Mcarthur MD, Pathologist NPI- [id number] . 01 Gross description: . The specimen is received in formalin, labeled "Darlene, Yen, hernia sac", consist of two rutledge-red partially hemorrhagic fibro-membranous segments with attached adipose tissue and a portion of mesentery. The specimen measures 14.0 x 10.5 x 1.4 cm in aggregate. The wall is fibrous with few focal area of induration. No discrete nodules or masses identified. Representatively submitted in A1-A2. ([facility]; 05/22/2019) [facility] 05/22/20192002 Local . 02 Pathologist provided ICD-10: K44.9 . 02 CPT . 883672 Specimen Comment: A courtesy copy of this report has been sent to [phone] Specimen Comment: 2034 Specimen Comment: Report sent to / DR ESCAMILLA Performed at: 01 [facility] [address], [place] [id number] MD Moris Al MD Phone: [phone] Performed at: 02 [facility] [address] [place], [place] [id number] MD Ochoa Mcarthur MD Phone: [phone]
== END 2019-05-23 13:10 | disposition home or self-care (01) ==
LOC: SURG 09:26 → 4 NORTH 13:30
PROVIDERS: ADMIT Surgery; ATTEND Surgery
DX: K43.2 Incisional hernia without obstruction or gangrene (principal); E07.9 Disorder of thyroid, unspecified; I10 Essential (primary) hypertension
CPT/HCPCS: 49566; 74018; 81025; 88302; 96372; 96374; 96376; A7015; C1781; G0378; G0379; J0171; J1100; J1170; J1650; J1885; J1956; J2001; J2250; J2405; J2704; J2710; J3010; J3490; J7120